=== PATIENT | female | born 1945 | race African-American/Black ===

== ENCOUNTER 2018-05-29 11:27 | Inpatient (IN) | payer MEDICARE ==
[~2018-05-29] VITALS: Ht 172.7 cm; Wt 104.1 kg
--- NOTE | ~2018-05-29 | MORECARE ---
CASE MANAGEMENT DISCHARGE SUMMARY PATIENT: IMELDA VELASQUEZ UNIT: [id number] ADM DATE: 05/29/18 AGE: 72 : 45 SEX: F ROOM/BED: D.2130 AUTHOR: JOSE CARNES PHYSICIAN: REFERRING PHYSICIAN: JOHN WARNER MD DATE OF SERVICE: 06/08/18 Discharge Plan Patient Name: IMELDA VELASQUEZ Facility: [facility]:[place] : 1945 Planned Disposition: Home Anticipated Discharge Date: 06/07/18 Discharge Date: 06/07/2018 Expected LOS: 9 Initial Reviewer: [id number] Initial Review Date: 05/31/2018 Generated: 06/08/18 9:44 am Comments DCP- Discharge Planning Updated by [email or web address]: Hugo Dietrich on 06/05/18 3:[address] Patient Name: IMELDA VELASQUEZ Encounter No: [id number] : 1945 Primary Insurance: MEDICARE A & B Anticipated DC Date: 06-06-2018 Planned Disposition: Home DCP follow-up note: CM REVIEWED PT'S CHART INDICATING PT IS WALKING 6 FEET, 35% ASSISTANCE WITH THERAPY. CM DISCUSSED DISCHARGE PLANNING AND NEEDS WELL AVAILABILITY OF REHAB SERVICES THROUGH INPATIENT, SNF, HOME HEALTH AND OUTPATIENT SERVICES. PT REFUSES THERAPY SERVICES, REPORTS HAVING WALKER AND FAMILY AT HOME THAT WILL ASSIST WITH ANY THERAPY NEEDS. PT PLAS SHE IS GOING HOME AT DISCHARGE AND NEEDS NOTHING. IMPORTANT MESSAGE FROM MEDICARE PROVIDED AND EXPLAINED. PT CONTINUES TO PLAN TO DISCHARGE HOME WITH FAMILY, DENIES NEED OF ANY THERAPY OR HOME SERVICES. CM TO CONTINUE TO FOLLOW AND ASSIST. DALILA Alegre DCP- Discharge Planning Updated by [id number]: Demetria Porter on 05/31/18 8:[address] Patient Name: IMELDA VELASQUEZ Admission Status: ER Accout number: [id number] Admission Date: 05-29-2018 : 1945 Admission Diagnosis: Attending: JOHN WARNER Current LOS: 2 Anticipated DC Date: 06-02-2018 Planned Disposition: Home Primary Insurance: MEDICARE A & B Discharge Planning Comments: CM MET WITH PATIENT REGARDING D/C NEEDS AND PLANS. MAGED STATED SHE LIVES WITH HER SPOUSE (DESIRAE) AND HE WILL DRIVE HER HOME AT DISCHARGE. PATIENT STATED SHE HAS 2 STEPS TO ENTER HOME AND NO STAIRS INSIDE. PATIENT IS INDEPENDENT WITH HER CARE AND HAS A WALKER, AND CANE AT HOME. PATIENT DOES NOT HAVE A PCP AND USES [facility] [address]. PATIENT REFUSED HOME HEALTH AT THIS TIME. PATIENT STATED HER DAUGHTER HELPS HER IF NEEDED. CM WILL CONTINUE TO FOLLOW PATIENT WITH D/C NEEDS AND PLANS. PCP NONE [facility] [address] DESIRAE (SPOUSE) [phone] Wood Boring Machine Operator: Demetria Porter DCPIA - Discharge Planning Initial Assessment Updated by [id number]: Demetria Porter on 05/31/18 8:57 am * Is the patient Alert and Oriented? Yes * How many steps to enter\exit or inside your home? * PCP NONE * Pharmacy [facility] [address] * Preadmission Environment Home with Family * ADLs Independent * Equipment Cane Walker * List name and contact numbers for known caregivers / representatives who currently or will assist patient after discharge: DESIRAE (SPOUSE) [phone] * Verbal permission to speak to the caregivers and representatives has been obtained from the patient. Yes * Community resources currently utilized None * Additional services required to return to the preadmission environment? Yes * Can the patient safely return to the preadmission environment? Yes * Has this patient been hospitalized within the prior 30 days at any hospital? No Coverage Notice Reviewer: [id number] - Hugo Dietrich Notice Issued Date-Time: 06/05/2018 12:10 Notice Type: IM Discharge Notice Notice Delivered To: Patient Relationship to Patient: Head Porter Name: Delivery Method: HAND - Hand Delivered Radha Days: Prior Verbal Notification: Recipient Understood Notice: Yes Recipient Signature: Yes Med Rec Note Co-signed by Attending: Coverage Notice Comment: Last DP export: 06/05/18 3:47 Patient Name: IMELDA VELASQUEZ Page [phone] at 0844 All edits/amendments must be made on the electronic document DICTATION DATE: 06/08/18843 PONY WORKER: LYUBOV 06/08/18843 RPT#: [id number] DC DATE:06/07/18 STATUS: DIS IN [id number] [place] [address] END OF REPORT
--- NOTE | ~2018-05-29 | MORECARE ---
CASE MANAGEMENT DISCHARGE SUMMARY PATIENT: IMELDA VELASQUEZ UNIT: [id number] ADM DATE: 05/29/18 AGE: 72 : 45 SEX: F ROOM/BED: D.2130 AUTHOR: DEYVIDOC PHYSICIAN: REFERRING PHYSICIAN: JOHN WARNER MD DATE OF SERVICE: 05/31/18 Discharge Plan Patient Name: IMELDA VELASQUEZ Facility: [facility]:[place] : 1945 Planned Disposition: Home Anticipated Discharge Date: 06/02/18 Discharge Date: Expected LOS: 4 Initial Reviewer: [email or web address] Initial Review Date: 05/31/2018 Generated: 05/31/18 10:06 am Comments DCP- Discharge Planning Updated by [email or web address]: Demetria Porter on 05/31/18 8:[address] Patient Name: IMELDA VELASQUEZ Admission Status: ER Accout number: [id number] Admission Date: 05-29-2018 : 1945 Admission Diagnosis: Attending: JOHN WARNER Current LOS: 2 Anticipated DC Date: 06-02-2018 Planned Disposition: Home Primary Insurance: MEDICARE A & B Discharge Planning Comments: CM MET WITH PATIENT REGARDING D/C NEEDS AND PLANS. MAGED STATED SHE LIVES WITH HER SPOUSE (DESIRAE) AND HE WILL DRIVE HER HOME AT DISCHARGE. PATIENT STATED SHE HAS 2 STEPS TO ENTER HOME AND NO STAIRS INSIDE. PATIENT IS INDEPENDENT WITH HER CARE AND HAS A WALKER, AND CANE AT HOME. PATIENT DOES NOT HAVE A PCP AND USES [facility] [address]. PATIENT REFUSED HOME HEALTH AT THIS TIME. PATIENT STATED HER DAUGHTER HELPS HER IF NEEDED. CM WILL CONTINUE TO FOLLOW PATIENT WITH D/C NEEDS AND PLANS. PCP NONE [facility] [address] DESIRAE (SPOUSE) [phone] Licensed Insurance Sales Agent: Demetria Porter DCPIA - Discharge Planning Initial Assessment Updated by [email or web address]: Demetria Porter on 05/31/18 8:57 am * Is the patient Alert and Oriented? Yes * How many steps to enter\exit or inside your home? * PCP NONE * Pharmacy [facility] [address] * Preadmission Environment Home with Family * ADLs Independent * Equipment Cane Walker * List name and contact numbers for known caregivers / representatives who currently or will assist patient after discharge: DESIRAE (SPOUSE) [phone] * Verbal permission to speak to the caregivers and representatives has been obtained from the patient. Yes * Community resources currently utilized None * Additional services required to return to the preadmission environment? Yes * Can the patient safely return to the preadmission environment? Yes * Has this patient been hospitalized within the prior 30 days at any hospital? No Last DP export: 05/31/18 7:59 a Patient Name: IMELDA VELASQUEZ Page [phone] at 0906 All edits/amendments must be made on the electronic document DICTATION DATE: 05/31/18905 DISASTER RECOVERY ANALYST: LYUBOV 05/31/18905 RPT#: [id number] DC DATE: STATUS: ADM IN [facility] [address] [place] [address] END OF REPORT
--- NOTE | ~2018-05-29 | MORECARE ---
CASE MANAGEMENT DISCHARGE SUMMARY PATIENT: IMELDA VELASQUEZ UNIT: [id number] ADM DATE: 05/29/18 AGE: 72 : 45 SEX: F ROOM/BED: D.2130 AUTHOR: JOSE CARNES PHYSICIAN: REFERRING PHYSICIAN: JOHN WARNER MD DATE OF SERVICE: 05/31/18 Discharge Plan Patient Name: IMELDA VELASQUEZ [facility] [facility] 1945 Planned Disposition: Home Anticipated Discharge Date: 06/02/18 Discharge Date: Expected LOS: 4 Initial Reviewer: [email or web address] Initial Review Date: 05/31/2018 Generated: 05/31/18 9:59 am DCPIA - Discharge Planning Initial Assessment Updated by [email or web address]: Demetria Porter on 05/31/18 8:57 am * Is the patient Alert and Oriented? Yes * How many steps to enter\exit or inside your home? * PCP NONE * Pharmacy [facility] [address] * Preadmission Environment Home with Family * ADLs Independent * Equipment Cane Walker * List name and contact numbers for known caregivers / representatives who currently or will assist patient after discharge: DESIRAE (SPOUSE) [phone] * Verbal permission to speak to the caregivers and representatives has been obtained from the patient. Yes * Community resources currently utilized None * Additional services required to return to the preadmission environment? Yes * Can the patient safely return to the preadmission environment? Yes * Has this patient been hospitalized within the prior 30 days at any hospital? No Patient Name: IMELDA VELASQUEZ Page 32770 at 0859 All edits/amendments must be made on the electronic document DICTATION DATE: 05/31/18857 PULLER THROUGH: LYUBOV 05/31/18857 RPT#: [id number] DC DATE: STATUS: ADM IN [facility] [address] [place] [address] END OF REPORT
--- NOTE | ~2018-05-29 | MORECARE ---
CASE MANAGEMENT DISCHARGE SUMMARY PATIENT: IMELDA VELASQUEZ UNIT: [id number] ADM DATE: 05/29/18 AGE: 72 : 45 SEX: F ROOM/BED: D.2130 AUTHOR: DEYVIDOC PHYSICIAN: REFERRING PHYSICIAN: JOHN WARNER MD DATE OF SERVICE: 06/05/18 Discharge Plan Patient Name: IMELDA VELASQUEZ Facility: [facility]:[place] : 1945 Planned Disposition: Home Anticipated Discharge Date: 06/06/18 Discharge Date: Expected LOS: 8 Initial Reviewer: [id number] Initial Review Date: 05/31/2018 Generated: 06/05/18 5:39 pm Comments DCP- Discharge Planning Updated by [email or web address]: Demetria Porter on 05/31/18 8:[address] Patient Name: IMELDA VELASQUEZ Admission Status: ER Accout number: [id number] Admission Date: 05-29-2018 : 1945 Admission Diagnosis: Attending: JOHN WARNER Current LOS: 2 Anticipated DC Date: 06-02-2018 Planned Disposition: Home Primary Insurance: MEDICARE A & B Discharge Planning Comments: CM MET WITH PATIENT REGARDING D/C NEEDS AND PLANS. MAGED STATED SHE LIVES WITH HER SPOUSE (DESIRAE) AND HE WILL DRIVE HER HOME AT DISCHARGE. PATIENT STATED SHE HAS 2 STEPS TO ENTER HOME AND NO STAIRS INSIDE. PATIENT IS INDEPENDENT WITH HER CARE AND HAS A WALKER, AND CANE AT HOME. PATIENT DOES NOT HAVE A PCP AND USES [facility] [address]. PATIENT REFUSED HOME HEALTH AT THIS TIME. PATIENT STATED HER DAUGHTER HELPS HER IF NEEDED. CM WILL CONTINUE TO FOLLOW PATIENT WITH D/C NEEDS AND PLANS. PCP NONE [facility] [address] DESIRAE (SPOUSE) [phone] Still Operator Brandy: Demetria Porter DCPIA - Discharge Planning Initial Assessment Updated by [id number]: Demetria Porter on 05/31/18 8:57 am * Is the patient Alert and Oriented? Yes * How many steps to enter\exit or inside your home? * PCP NONE * Pharmacy [facility] [address] * Preadmission Environment Home with Family * ADLs Independent * Equipment Cane Walker * List name and contact numbers for known caregivers / representatives who currently or will assist patient after discharge: DESIRAE (SPOUSE) [phone] * Verbal permission to speak to the caregivers and representatives has been obtained from the patient. Yes * Community resources currently utilized None * Additional services required to return to the preadmission environment? Yes * Can the patient safely return to the preadmission environment? Yes * Has this patient been hospitalized within the prior 30 days at any hospital? No Coverage Notice Reviewer: [email or web address] Eva Dietrich Notice Issued Date-Time: 06/05/2018 12:10 Notice Type: IM Discharge Notice Notice Delivered To: Patient Relationship to Patient: Child Nutrition Manager Name: Delivery Method: HAND - Hand Delivered Radha Days: Prior Verbal Notification: Recipient Understood Notice: Yes Recipient Signature: Yes Med Rec Note Co-signed by Attending: Coverage Notice Comment: Last DP export: 05/31/18 8:06 a Patient Name: IMELDA VELASQUEZ Page 44080 at 1639 All edits/amendments must be made on the electronic document DICTATION DATE: 06/05/18 1639 EDGE SETTER: LYUBOV 06/05/18 1639 RPT#: [id number] DC DATE: STATUS: ADM IN [facility] [address] [place] [address] END OF REPORT
--- NOTE | ~2018-05-29 | MORECARE ---
CASE MANAGEMENT DISCHARGE SUMMARY PATIENT: IMELDA VELASQUEZ UNIT: [id number] ADM DATE: 05/29/18 AGE: 72 : 45 SEX: F ROOM/BED: D.2130 AUTHOR: JOSE CARNES PHYSICIAN: REFERRING PHYSICIAN: JOHN WARNER MD DATE OF SERVICE: 06/05/18 Discharge Plan Patient Name: IMELDA VELASQUEZ Facility: [facility]:[place] : 1945 Planned Disposition: Home Anticipated Discharge Date: 06/06/18 Discharge Date: Expected LOS: 8 Initial Reviewer: [id number] Initial Review Date: 05/31/2018 Generated: 06/05/18 5:47 pm Comments DCP- Discharge Planning Updated by [email or web address]: Hugo Dietrich on 06/05/18 3:[address] Patient Name: IMELDA VELASQUEZ Encounter No: [id number] : 1945 Primary Insurance: MEDICARE A & B Anticipated DC Date: 06-06-2018 Planned Disposition: Home DCP follow-up note: CM REVIEWED PT'S CHART INDICATING PT IS WALKING 6 FEET, 35% ASSISTANCE WITH THERAPY. CM DISCUSSED DISCHARGE PLANNING AND NEEDS WELL AVAILABILITY OF REHAB SERVICES THROUGH INPATIENT, J[facility], HOME HEALTH AND OUTPATIENT SERVICES. PT REFUSES THERAPY SERVICES, REPORTS HAVING WALKER AND FAMILY AT HOME THAT WILL ASSIST WITH ANY THERAPY NEEDS. PT PLAS SHE IS GOING HOME AT DISCHARGE AND NEEDS NOTHING. IMPORTANT MESSAGE FROM MEDICARE PROVIDED AND EXPLAINED. PT CONTINUES TO PLAN TO DISCHARGE HOME WITH FAMILY, DENIES NEED OF ANY THERAPY OR HOME SERVICES. CM TO CONTINUE TO FOLLOW AND ASSIST. DALILA Alegre DCP- Discharge Planning Updated by [id number]: Demetria Porter on 05/31/18 8:[address] Patient Name: IMELDA VELASQUEZ Admission Status: ER Accout number: [id number] Admission Date: 05-29-2018 : 1945 Admission Diagnosis: Attending: JOHN WARNER Current LOS: 2 Anticipated DC Date: 06-02-2018 Planned Disposition: Home Primary Insurance: MEDICARE A & B Discharge Planning Comments: CM MET WITH PATIENT REGARDING D/C NEEDS AND PLANS. MAGED STATED SHE LIVES WITH HER SPOUSE (DESIRAE) AND HE WILL DRIVE HER HOME AT DISCHARGE. PATIENT STATED SHE HAS 2 STEPS TO ENTER HOME AND NO STAIRS INSIDE. PATIENT IS INDEPENDENT WITH HER CARE AND HAS A WALKER, AND CANE AT HOME. PATIENT DOES NOT HAVE A PCP AND USES [facility] [address]. PATIENT REFUSED HOME HEALTH AT THIS TIME. PATIENT STATED HER DAUGHTER HELPS HER IF NEEDED. CM WILL CONTINUE TO FOLLOW PATIENT WITH D/C NEEDS AND PLANS. PCP NONE [facility] [address] DESIRAE (SPOUSE) [phone] Crayon Sawyer: Demetria Porter DCPIA - Discharge Planning Initial Assessment Updated by [email or web address]: Demetria Porter on 05/31/18 8:57 am * Is the patient Alert and Oriented? Yes * How many steps to enter\exit or inside your home? * PCP NONE * Pharmacy [facility] [address] * Preadmission Environment Home with Family * ADLs Independent * Equipment Cane Walker * List name and contact numbers for known caregivers / representatives who currently or will assist patient after discharge: DESIRAE (SPOUSE) [phone] * Verbal permission to speak to the caregivers and representatives has been obtained from the patient. Yes * Community resources currently utilized None * Additional services required to return to the preadmission environment? Yes * Can the patient safely return to the preadmission environment? Yes * Has this patient been hospitalized within the prior 30 days at any hospital? No Coverage Notice Reviewer: [id number] - Hugo Dietrich Notice Issued Date-Time: 06/05/2018 12:10 Notice Type: IM Discharge Notice Notice Delivered To: Patient Relationship to Patient: Chin Strap Sewer Name: Delivery Method: HAND - Hand Delivered Radha Days: Prior Verbal Notification: Recipient Understood Notice: Yes Recipient Signature: Yes Med Rec Note Co-signed by Attending: Coverage Notice Comment: Last DP export: 06/05/18 3:39 Patient Name: IMELDA VELASQUEZ Page 30105 at 1647 All edits/amendments must be made on the electronic document DICTATION DATE: 06/05/181646 YOGHURT MAKER: LYUBOV 06/05/181646 RPT#: [id number] DC DATE: STATUS: ADM IN [facility] [address] [place] [address] END OF REPORT
[2018-05-29 11:57] LABS: BASOPHILS 0.1 % (0-2); EOSINOPHILS 1.8 % (0-7); IMMATURE GRANULOCYTES 0.4 % (0-5); LYMPHOCYTES 24.2 % (15-50); MCH 31.4 pg (26.0-34.0); MCHC 32.2 g/dL (31.0-37.0); MCV 97.5 fL (80.0-100.0); MEAN PLATELET VOLUME 8.7 fL (7.4-10.4); MONOCYTES 8.7 % (2-11); NEUTROPHILS 64.8 % (40-80); PLATELET COUNT 230 10x3/uL (130-400); RBC 2.04 10x6/uL (4.00-5.40); RDW 14.5 % (11.5-14.5); WBC 10.4 10x3/uL (4.8-10.8)
[2018-05-29 12:03] LABS: HEMATOCRIT 19.9 % (36.0-48.0); HEMOGLOBIN 6.4 g/dL (12-16)
[2018-05-29 12:07] LABS: APTT 28.8 SECONDS (22.8-39.4); INR 1.15 (0.85-1.17); PROTIME 14.3 SECONDS (11.6-15.0)
[2018-05-29 12:26] LABS: CKMB 9.1 U/L (0.0-3.6); CREATINE KINASE 1725 UL (21-215); THYROID STIMULATING HORMONE 100.12 uIU/mL (0.36-3.74); TROPONIN-I < 0.017 ng/mL (0.000-0.060)
[2018-05-29 12:45] LABS: ALBUMIN 3.1 g/dL (3.4-5.0); ANION GAP 21.7 mmol/L (8-16); BILIRUBIN - TOTAL 0.24 mg/dL (0.2-1.3); CARBON DIOXIDE 12.5 mmol/L (21.0-32.0); CREATININE - SERUM 5.4 mg/dL (0.6-1.3); POTASSIUM - SERUM 4.2 mmol/L (3.5-5.1); PROTEIN - SERUM 7.1 g/dL (6.4-8.2)
[2018-05-29 12:48] LABS: CALCIUM 6.4 mg/dL (8.5-10.1)
[2018-05-29 16:55] VITALS: BP 130/62; BMI 35.0
[2018-05-29 17:13] LABS: % SATURATION 34 % (15-55); IRON 70 ug/dl (35-150); TOTAL IRON BIND CAPACITY 201 ug/dl (260-445); UNSAT IRON BIND CAPACITY 131 ug/dl (150-375)
[2018-05-29 22:03] VITALS: BP 139/71
[2018-05-30 01:13] VITALS: BP 123/73
[2018-05-30 02:22] LABS: APPEARANCE CLOUDY (CLEAR); BILIRUBIN NEGATIVE (NEGATIVE); COLOR YELLOW (YELLOW); GLUCOSE NEGATIVE (NEGATIVE); KETONE NEGATIVE (NEGATIVE); NITRITE NEGATIVE (NEGATIVE); PROTEIN TRACE mg/dL (NEGATIVE); UROBILINOGEN NORMAL (NORMAL)
[2018-05-30 02:23] LABS: RED CELLS - URINE 0-5 /hpf (0-5)
[2018-05-30 02:24] LABS: BACTERIA MANY /hpf (NONE SEEN); EPITHELIAL CELLS 0-5 /hpf (0-5)
[2018-05-30 05:01] VITALS: BP 116/88
[2018-05-30 06:52] LABS: BASOPHILS 0.2 % (0-2); IMMATURE GRANULOCYTES 0.5 % (0-5); LYMPHOCYTES 26.6 % (15-50); MCH 30.9 pg (26.0-34.0); MCHC 33.5 g/dL (31.0-37.0); MEAN PLATELET VOLUME 9.1 fL (7.4-10.4); MONOCYTES 8.5 % (2-11); NEUTROPHILS 62.2 % (40-80); PLATELET COUNT 205 10x3/uL (130-400); RDW 16.3 % (11.5-14.5); WBC 8.8 10x3/uL (4.8-10.8)
[2018-05-30 06:59] LABS: HEMATOCRIT 24.2 % (36.0-48.0); HEMOGLOBIN 8.1 g/dL (12-16); MCV 92.4 fL (80.0-100.0); RBC 2.62 10x6/uL (4.00-5.40)
[2018-05-30 07:31] LABS: ALBUMIN 2.7 g/dL (3.4-5.0); ALKALINE PHOSPHATASE 55 U/L (46-116); ALT (SGPT) 26 U/L (10-68); BILIRUBIN - TOTAL 0.29 mg/dL (0.2-1.3); CALC OSMOLALITY 303 mosm/kg (275-300); CARBON DIOXIDE 10.6 mmol/L (21.0-32.0); CHLORIDE - SERUM 114 mmol/L (98-107); CREATININE - SERUM 5.1 mg/dL (0.6-1.3); GLUCOSE 76 mg/dL (74-106); POTASSIUM - SERUM 3.8 mmol/L (3.5-5.1); PROTEIN - SERUM 6.9 g/dL (6.4-8.2); SODIUM 144 mmol/L (136-145); UREA NITROGEN 63 mg/dL (7-18); eGFR NON AFRICAN AMERICAN 9 mL/min (90-120)
[2018-05-30 07:59] LABS: CREATINE KINASE 1586 UL (21-215)
[2018-05-30 08:01] LABS: CALCIUM 6.1 mg/dL (8.5-10.1); CKMB 8.9 U/L (0.0-3.6)
[2018-05-30 08:33] VITALS: BP 128/61
[2018-05-30 11:45] VITALS: BP 127/64
[2018-05-30 13:36] VITALS: Ht 172.7 cm; Wt 104.1 kg
[2018-05-30 16:26] VITALS: BP 148/73
[2018-05-30 21:31] VITALS: BP 138/72
[2018-05-31 00:30] VITALS: BP 139/68
[2018-05-31 05:27] LABS: BASOPHILS 0.1 % (0-2); HEMATOCRIT 25.1 % (36.0-48.0); HEMOGLOBIN 8.2 g/dL (12-16); IMMATURE GRANULOCYTES 0.7 % (0-5); LYMPHOCYTES 21.9 % (15-50); MCH 30.1 pg (26.0-34.0); MCHC 32.7 g/dL (31.0-37.0); MCV 92.3 fL (80.0-100.0); MEAN PLATELET VOLUME 9.4 fL (7.4-10.4); MONOCYTES 11.5 % (2-11); NEUTROPHILS 64.8 % (40-80); PLATELET COUNT 217 10x3/uL (130-400); RBC 2.72 10x6/uL (4.00-5.40); RDW 16.2 % (11.5-14.5); WBC 10.8 10x3/uL (4.8-10.8)
[2018-05-31 05:33] VITALS: BP 131/69
[2018-05-31 06:19] LABS: CALC OSMOLALITY 299 mosm/kg (275-300); CARBON DIOXIDE 12.1 mmol/L (21.0-32.0); CHLORIDE - SERUM 109 mmol/L (98-107); CREATININE - SERUM 4.7 mg/dL (0.6-1.3); GLUCOSE 104 mg/dL (74-106); PHOSPHOROUS 4.4 mg/dL (2.5-4.9); POTASSIUM - SERUM 3.6 mmol/L (3.5-5.1); SODIUM 141 mmol/L (136-145); UREA NITROGEN 65 mg/dL (7-18); eGFR NON AFRICAN AMERICAN 10 mL/min (90-120)
[2018-05-31 06:21] LABS: CREATINE KINASE 1515 UL (21-215)
[2018-05-31 06:22] LABS: CALCIUM 6.9 mg/dL (8.5-10.1)
[2018-05-31 06:23] LABS: CKMB 7.8 U/L (0.0-3.6)
[2018-05-31 08:12] VITALS: BP 124/66
[2018-05-31 11:22] VITALS: BP 115/66
[2018-05-31 15:41] VITALS: BP 130/84
[2018-05-31 21:31] VITALS: BP 121/74
[2018-06-01 00:49] VITALS: BP 122/78
[2018-06-01 05:44] LABS: BASOPHILS 0.1 % (0-2); EOSINOPHILS 1.3 % (0-7); IMMATURE GRANULOCYTES 1.4 % (0-5); LYMPHOCYTES 21.5 % (15-50); MCH 30.4 pg (26.0-34.0); MCHC 33.3 g/dL (31.0-37.0); MCV 91.3 fL (80.0-100.0); MEAN PLATELET VOLUME 9.3 fL (7.4-10.4); MONOCYTES 12.5 % (2-11); NEUTROPHILS 63.2 % (40-80); PLATELET COUNT 218 10x3/uL (130-400); RBC 2.63 10x6/uL (4.00-5.40); RDW 15.8 % (11.5-14.5); WBC 9.1 10x3/uL (4.8-10.8)
[2018-06-01 05:58] VITALS: BP 108/63
[2018-06-01 06:24] LABS: CALC OSMOLALITY 297 mosm/kg (275-300); CHLORIDE - SERUM 105 mmol/L (98-107); CREATININE - SERUM 4.4 mg/dL (0.6-1.3); GLUCOSE 107 mg/dL (74-106); PHOSPHOROUS 3.9 mg/dL (2.5-4.9); SODIUM 141 mmol/L (136-145); UREA NITROGEN 60 mg/dL (7-18); eGFR NON AFRICAN AMERICAN 10 mL/min (90-120)
[2018-06-01 06:53] LABS: CALCIUM 6.5 mg/dL (8.5-10.1); CARBON DIOXIDE 21.3 mmol/L (21.0-32.0); CKMB 3.8 U/L (0.0-3.6); CREATINE KINASE 1157 UL (21-215); POTASSIUM - SERUM 2.8 mmol/L (3.5-5.1)
[2018-06-01 08:54] VITALS: BP 149/59
[2018-06-01 10:50] VITALS: BP 101/64
[2018-06-01 11:35] LABS: ERYTHROCYTE SEDIMENTATION RATE 45 mm/hr (0-30)
[2018-06-01 14:14] VITALS: BP 142/58
[2018-06-01 19:00] VITALS: BP 140/86
[2018-06-02 02:11] VITALS: BP 127/73
[2018-06-02 04:00] VITALS: BP 133/70
[2018-06-02 07:33] VITALS: BP 133/70
[2018-06-02 09:04] LABS: BASOPHILS 0.2 % (0-2); EOSINOPHILS 1.1 % (0-7); HEMATOCRIT 26.4 % (36.0-48.0); HEMOGLOBIN 8.8 g/dL (12-16); IMMATURE GRANULOCYTES 1.4 % (0-5); LYMPHOCYTES 15.4 % (15-50); MCH 30.8 pg (26.0-34.0); MCHC 33.3 g/dL (31.0-37.0); MCV 92.3 fL (80.0-100.0); MEAN PLATELET VOLUME 9.7 fL (7.4-10.4); MONOCYTES 12.6 % (2-11); NEUTROPHILS 69.3 % (40-80); PLATELET COUNT 258 10x3/uL (130-400); RBC 2.86 10x6/uL (4.00-5.40); RDW 15.7 % (11.5-14.5)
[2018-06-02 09:07] LABS: WBC 11.8 10x3/uL (4.8-10.8)
[2018-06-02 09:22] LABS: CARBON DIOXIDE 18.6 mmol/L (21.0-32.0); CREATININE - SERUM 4.4 mg/dL (0.6-1.3); PHOSPHOROUS 4.4 mg/dL (2.5-4.9)
[2018-06-02 09:23] LABS: ANION GAP 21.1 mmol/L (8-16); POTASSIUM - SERUM 3.7 mmol/L (3.5-5.1)
[2018-06-02 09:24] LABS: CALCIUM 6.5 mg/dL (8.5-10.1)
[2018-06-02 11:43] VITALS: BP 133/78
[2018-06-02 15:54] VITALS: BP 133/80
[2018-06-02 20:00] VITALS: BP 143/85
[2018-06-03 00:10] VITALS: BP 153/82
[2018-06-03 04:00] VITALS: BP 144/91
[2018-06-03 08:35] VITALS: BP 118/72
[2018-06-03 10:57] LABS: BASOPHILS 0.2 % (0-2); EOSINOPHILS 0.4 % (0-7); HEMATOCRIT 25.9 % (36.0-48.0); HEMOGLOBIN 8.5 g/dL (12-16); IMMATURE GRANULOCYTES 1.8 % (0-5); LYMPHOCYTES 14.5 % (15-50); MCH 30.7 pg (26.0-34.0); MCHC 32.8 g/dL (31.0-37.0); MCV 93.5 fL (80.0-100.0); MEAN PLATELET VOLUME 9.3 fL (7.4-10.4); MONOCYTES 9.4 % (2-11); NEUTROPHILS 73.7 % (40-80); PLATELET COUNT 263 10x3/uL (130-400); RBC 2.77 10x6/uL (4.00-5.40); RDW 15.4 % (11.5-14.5); WBC 12.8 10x3/uL (4.8-10.8)
[2018-06-03 11:13] LABS: ANION GAP 17.6 mmol/L (8-16); CARBON DIOXIDE 19.9 mmol/L (21.0-32.0); CREATININE - SERUM 4.2 mg/dL (0.6-1.3); PHOSPHOROUS 4.6 mg/dL (2.5-4.9); POTASSIUM - SERUM 3.5 mmol/L (3.5-5.1)
[2018-06-03 11:16] LABS: CALCIUM 6.9 mg/dL (8.5-10.1)
[2018-06-03 11:49] LABS: APPEARANCE CLOUDY (CLEAR); BILIRUBIN NEGATIVE (NEGATIVE); COLOR YELLOW (YELLOW); GLUCOSE NEGATIVE (NEGATIVE); KETONE NEGATIVE (NEGATIVE); NITRITE NEGATIVE (NEGATIVE); PROTEIN 1+ mg/dL (NEGATIVE); SPECIFIC GRAVITY 1.015 (1.005-1.020); UROBILINOGEN NORMAL (NORMAL)
[2018-06-03 11:52] LABS: BACTERIA MODERATE /hpf (NONE SEEN); EPITHELIAL CELLS 0-5 /hpf (0-5); RED CELLS - URINE 0-5 /hpf (0-5)
[2018-06-03 11:55] VITALS: BP 128/77
[2018-06-03 17:19] VITALS: BP 138/79
[2018-06-03 20:00] VITALS: BP 137/78
[2018-06-04 00:06] VITALS: BP 146/76
[2018-06-04 04:00] VITALS: BP 150/90
[2018-06-04 06:52] LABS: BASOPHILS 0.1 % (0-2); EOSINOPHILS 1.3 % (0-7); HEMATOCRIT 24.6 % (36.0-48.0); HEMOGLOBIN 8.1 g/dL (12-16); IMMATURE GRANULOCYTES 1.4 % (0-5); LYMPHOCYTES 18.9 % (15-50); MCH 30.2 pg (26.0-34.0); MCHC 32.9 g/dL (31.0-37.0); MCV 91.8 fL (80.0-100.0); MONOCYTES 8.5 % (2-11); NEUTROPHILS 69.8 % (40-80); PLATELET COUNT 280 10x3/uL (130-400); RBC 2.68 10x6/uL (4.00-5.40); RDW 15.3 % (11.5-14.5)
[2018-06-04 07:06] LABS: ANION GAP 17.9 mmol/L (8-16); CARBON DIOXIDE 22.4 mmol/L (21.0-32.0); CREATININE - SERUM 4.1 mg/dL (0.6-1.3); PHOSPHOROUS 3.8 mg/dL (2.5-4.9); POTASSIUM - SERUM 3.3 mmol/L (3.5-5.1)
[2018-06-04 08:44] VITALS: BP 136/64
[2018-06-04 12:09] VITALS: BP 130/72
[2018-06-04 20:30] VITALS: BP 113/72
[2018-06-05 00:30] VITALS: BP 160/95
[2018-06-05 04:30] VITALS: BP 139/68
[2018-06-05 06:48] LABS: BASOPHILS 0.2 % (0-2); EOSINOPHILS 0.7 % (0-7); HEMATOCRIT 24.6 % (36.0-48.0); HEMOGLOBIN 8.1 g/dL (12-16); IMMATURE GRANULOCYTES 1.4 % (0-5); LYMPHOCYTES 20.2 % (15-50); MCH 30.6 pg (26.0-34.0); MCHC 32.9 g/dL (31.0-37.0); MCV 92.8 fL (80.0-100.0); MONOCYTES 8.9 % (2-11); NEUTROPHILS 68.6 % (40-80); PLATELET COUNT 278 10x3/uL (130-400); RBC 2.65 10x6/uL (4.00-5.40); RDW 15.1 % (11.5-14.5); WBC 9.8 10x3/uL (4.8-10.8)
[2018-06-05 07:06] LABS: ANION GAP 16.9 mmol/L (8-16); CALCIUM 7.5 mg/dL (8.5-10.1); CARBON DIOXIDE 21.5 mmol/L (21.0-32.0); PHOSPHOROUS 3.5 mg/dL (2.5-4.9); POTASSIUM - SERUM 3.4 mmol/L (3.5-5.1)
[2018-06-05 10:12] VITALS: BP 143/71
[2018-06-05 11:00] VITALS: BP 132/77
[2018-06-05 15:00] VITALS: BP 138/75
[2018-06-05 20:00] VITALS: BP 140/73
[2018-06-06] MEDS ORDERED: SYNTHROID125 MCG PO (01:02)
[2018-06-06 05:50] LABS: BASOPHILS 0.1 % (0-2); EOSINOPHILS 0.6 % (0-7); HEMATOCRIT 28.2 % (36.0-48.0); HEMOGLOBIN 9.1 g/dL (12-16); IMMATURE GRANULOCYTES 1.6 % (0-5); LYMPHOCYTES 20.3 % (15-50); MCH 30.6 pg (26.0-34.0); MCHC 32.3 g/dL (31.0-37.0); MEAN PLATELET VOLUME 9.1 fL (7.4-10.4); MONOCYTES 9.1 % (2-11); NEUTROPHILS 68.3 % (40-80); PLATELET COUNT 276 10x3/uL (130-400); RBC 2.97 10x6/uL (4.00-5.40); RDW 15.5 % (11.5-14.5); WBC 8.6 10x3/uL (4.8-10.8)
[2018-06-06 06:01] LABS: MCV 94.9 fL (80.0-100.0)
[2018-06-06 06:45] LABS: ANION GAP 19.8 mmol/L (8-16); CALCIUM 7.7 mg/dL (8.5-10.1); CARBON DIOXIDE 20.1 mmol/L (21.0-32.0); PHOSPHOROUS 3.3 mg/dL (2.5-4.9)
[2018-06-06 06:48] LABS: POTASSIUM - SERUM 3.9 mmol/L (3.5-5.1)
[2018-06-06 06:59] VITALS: BP 138/70
[2018-06-06 08:36] VITALS: BP 132/84
[2018-06-06 12:16] VITALS: BP 125/68
[2018-06-06 21:09] VITALS: BP 146/81
[2018-06-07 01:23] VITALS: BP 145/83
[2018-06-07 06:15] VITALS: BP 137/72
[2018-06-07 06:49] LABS: BASOPHILS 0.3 % (0-2); EOSINOPHILS 0.9 % (0-7); HEMATOCRIT 24.4 % (36.0-48.0); IMMATURE GRANULOCYTES 2.7 % (0-5); LYMPHOCYTES 23.5 % (15-50); MCH 31.3 pg (26.0-34.0); MCHC 32.8 g/dL (31.0-37.0); MCV 95.3 fL (80.0-100.0); MEAN PLATELET VOLUME 8.8 fL (7.4-10.4); MONOCYTES 9.1 % (2-11); NEUTROPHILS 63.5 % (40-80); PLATELET COUNT 265 10x3/uL (130-400); RBC 2.56 10x6/uL (4.00-5.40); RDW 15.5 % (11.5-14.5); WBC 7.9 10x3/uL (4.8-10.8)
[2018-06-07 07:02] LABS: ANION GAP 14.1 mmol/L (8-16); CARBON DIOXIDE 24.6 mmol/L (21.0-32.0); CREATININE - SERUM 3.6 mg/dL (0.6-1.3); PHOSPHOROUS 2.5 mg/dL (2.5-4.9)
[2018-06-07 07:24] LABS: POTASSIUM - SERUM 2.7 mmol/L (3.5-5.1)
[2018-06-07 08:17] VITALS: BP 142/61
[2018-06-07] MEDS ORDERED: OS-CAL500 MG PO (12:27)
[2018-06-07] MEDS ORDERED: ROCALTROL0.25 MCG PO (12:27)
[2018-06-07] MEDS ORDERED: SYNTHROID125 MCG PO (12:46)
[2018-06-07] MEDS ORDERED: SODIUM BICARBO650 MG PO (12:46)
[2018-06-07 13:00] VITALS: BP 138/64
[2018-06-27] MEDS ORDERED: QUESTRAN PACKET PO (09:05)
[2018-06-27] MEDS ORDERED: FLAGYL 500500 MG/100 PO (09:05)
[2018-06-27] MEDS ORDERED: OS-CAL500 MG PO (09:05)
[2018-06-27] MEDS ORDERED: SODIUM BICARBO650 MG PO (09:07)
[2018-06-27] MEDS ORDERED: K-DUR20 MEQ PO (09:07)
[2018-06-27] MEDS ORDERED: MAG-OX 400 MG400 MG PO ×2 (09:08→10:22)
[2018-06-27] MEDS ORDERED: FLAGYL500 MG PO (10:19)
== END 2018-06-07 17:43 | disposition home or self-care (01) | DRG 683 ==
LOC: D.ER 11:27 → D.M2 14:29 → D.EDHOLD 14:29 → D.M2 14:34
PROVIDERS: Family Medicine; Internal Medicine Nephrology
DX: N17.9 Acute kidney failure, unspecified (principal); M62.82 Rhabdomyolysis; E87.2 Acidosis; N18.5 Chronic kidney disease, stage 5; D63.1 Anemia in chronic kidney disease; E03.9 Hypothyroidism, unspecified; M79.671 Pain in right foot; E83.51 Hypocalcemia

== ENCOUNTER 2018-07-17 14:54 | Inpatient (IN) | payer MEDICARE ==
[~2018-07-17] VITALS: Ht 172.7 cm; Wt 98.7 kg
[~2018-07-17 14:54] MED LIST: FLAGYL 500500 MG/100 PO; FLAGYL500 MG PO; K-DUR20 MEQ PO; MAG-OX 400 MG400 MG PO; OS-CAL500 MG PO; QUESTRAN PACKET PO; ROCALTROL0.25 MCG PO; SODIUM BICARBO650 MG PO; SYNTHROID125 MCG PO
[2018-07-17 15:43] LABS: BASOPHILS 0.1 % (0-2); EOSINOPHILS 0.5 % (0-7); HEMATOCRIT 27.6 % (36.0-48.0); IMMATURE GRANULOCYTES 1.7 % (0-5); LYMPHOCYTES 16.4 % (15-50); MCH 29.2 pg (26.0-34.0); MCHC 32.6 g/dL (31.0-37.0); MCV 89.6 fL (80.0-100.0); MEAN PLATELET VOLUME 8.9 fL (7.4-10.4); MONOCYTES 8.7 % (2-11); NEUTROPHILS 72.6 % (40-80); RBC 3.08 10x6/uL (4.00-5.40); RDW 19.6 % (11.5-14.5); WBC 13.9 10x3/uL (4.8-10.8)
[2018-07-17 16:00] LABS: PLATELET COUNT 434 10x3/uL (130-400)
[2018-07-17 16:08] LABS: APPEARANCE HAZY (CLEAR); BILIRUBIN NEGATIVE (NEGATIVE); COLOR YELLOW (YELLOW); GLUCOSE NEGATIVE (NEGATIVE); KETONE NEGATIVE (NEGATIVE); NITRITE NEGATIVE (NEGATIVE); PROTEIN TRACE mg/dL (NEGATIVE); UROBILINOGEN NORMAL (NORMAL)
[2018-07-17 16:09] LABS: BACTERIA MANY /hpf (NONE SEEN); RED CELLS - URINE 0-5 /hpf (0-5)
[2018-07-17 17:31] LABS: ALBUMIN 2.2 g/dL (3.4-5.0); ALKALINE PHOSPHATASE 71 U/L (46-116); ALT (SGPT) 3 U/L (10-68); BILIRUBIN - TOTAL 0.27 mg/dL (0.2-1.3); CALC OSMOLALITY 298 mosm/kg (275-300); CALCIUM 7.3 mg/dL (8.5-10.1); CHLORIDE - SERUM 112 mmol/L (98-107); CKMB 2.5 U/L (0.0-3.6); CREATINE KINASE 261 UL (21-215); CREATININE - SERUM 5.7 mg/dL (0.6-1.3); GLUCOSE 89 mg/dL (74-106); PRO BNP 6426 pg/mL (0-125); PROTEIN - SERUM 7.1 g/dL (6.4-8.2); SODIUM 145 mmol/L (136-145); UREA NITROGEN 43 mg/dL (7-18); eGFR NON AFRICAN AMERICAN 8 mL/min (90-120)
[2018-07-17 17:38] LABS: POTASSIUM - SERUM 1.8 mmol/L (3.5-5.1)
--- NOTE | 2018-07-17 17:39 | NUR ---
LAB ON PT TROPONIN 0.180, C02 10, POTASSIUM 1.8
[2018-07-17 20:00] VITALS: BP 119/66
--- NOTE | 2018-07-17 20:30 | NUR ---
PT ASSISTED TO BED VYAS HAD X1 LIQUID BM WITH VOID, PT AAOX4, DENIES PAIN, VSS, WILL CONTINUE TO ASSESS
--- NOTE | 2018-07-17 20:56 | NUR ---
CALLED ICU, UPDATE GIVEN, ORDERS RECEIVED
[2018-07-17 21:00] VITALS: BP 129/43
[2018-07-17 21:53] LABS: CALCIUM 7.1 mg/dL (8.5-10.1); CREATININE - SERUM 5.5 mg/dL (0.6-1.3)
[2018-07-17 22:00] VITALS: BP 127/63
[2018-07-17 22:01] LABS: ANION GAP 22.1 mmol/L (8-16); CARBON DIOXIDE 12.6 mmol/L (21.0-32.0); POTASSIUM - SERUM 1.7 mmol/L (3.5-5.1)
[2018-07-17 23:00] VITALS: BP 118/85
--- NOTE | 2018-07-17 23:00 | NUR ---
REASSESSMENT PER FLOW SHEET, NO ACUTE CHANGES NOTED, REPOSITIONED FOR COMFORT, CONTINUEING K+ CORRECTION WITH MEDS, VSS WILL CONTINUE TO ASSESS
[2018-07-18] VITALS (24 sets, daily range): BP systolic 94–170; BP diastolic 53–96; BMI 23.4
--- NOTE | 2018-07-18 01:00 | NUR ---
PT RESTING IN BED, HR ELEVATED TO 130'S, LABS DRAWN, K+ & MAG LEVELS LOW, PAGED , WILL CONTINUE TO ASSESS
[2018-07-18 01:41] LABS: ALBUMIN 1.8 g/dL (3.4-5.0); BILIRUBIN - TOTAL 0.22 mg/dL (0.2-1.3); CALCIUM 7.1 mg/dL (8.5-10.1); CARBON DIOXIDE 12.7 mmol/L (21.0-32.0); CREATININE - SERUM 5.4 mg/dL (0.6-1.3); PROTEIN - SERUM 6.8 g/dL (6.4-8.2)
[2018-07-18 01:43] LABS: ANION GAP 21.8 mmol/L (8-16); MAGNESIUM - SERUM 0.9 mg/dL (1.8-2.4); POTASSIUM - SERUM 2.5 mmol/L (3.5-5.1)
--- NOTE | 2018-07-18 02:37 | NUR ---
NO RESPONSE FROM PHYSICIAN, PAGE #2, WILL CONTINUE TPO CONTACT PHYSICIAN. 0240- CALLED ICU, UPDATE GIVEN, ORDERS RECEIVED
--- NOTE | 2018-07-18 03:00 | NUR ---
REASSESSMENT COMPLETE PER FLOW SHEET, PT RESTING, DENIES PAIN, MEDS GIVEN PER MAR/ORDERS, REPOSITIONED FOR COMFORT, VSS, WILL CONTINUE TO ASSESS
--- NOTE | 2018-07-18 05:00 | NUR ---
PT APPEARS TO BE IN NO ACUTE DISTRESS, DENIES PAIN, AAOx4, INFUSING MEDS PER ORDERS, VSS WILL CONTINUE TO ASSESS
[2018-07-18 05:38] LABS: BASOPHILS 0.1 % (0-2); EOSINOPHILS 0.8 % (0-7); HEMATOCRIT 24.8 % (36.0-48.0); HEMOGLOBIN 8.2 g/dL (12-16); IMMATURE GRANULOCYTES 1.5 % (0-5); LYMPHOCYTES 16.2 % (15-50); MCHC 33.1 g/dL (31.0-37.0); MEAN PLATELET VOLUME 8.5 fL (7.4-10.4); MONOCYTES 8.3 % (2-11); NEUTROPHILS 73.1 % (40-80); PLATELET COUNT 363 10x3/uL (130-400); RBC 2.83 10x6/uL (4.00-5.40); RDW 19.6 % (11.5-14.5); WBC 11.8 10x3/uL (4.8-10.8)
[2018-07-18 05:51] LABS: MCV 87.6 fL (80.0-100.0)
[2018-07-18 06:20] LABS: ALBUMIN 1.8 g/dL (3.4-5.0); BILIRUBIN - TOTAL 0.24 mg/dL (0.2-1.3); CALCIUM 7.1 mg/dL (8.5-10.1); CARBON DIOXIDE 11.7 mmol/L (21.0-32.0); CREATININE - SERUM 5.1 mg/dL (0.6-1.3); PROTEIN - SERUM 6.6 g/dL (6.4-8.2)
[2018-07-18 06:21] LABS: ANION GAP 22.6 mmol/L (8-16); POTASSIUM - SERUM 2.3 mmol/L (3.5-5.1)
--- NOTE | 2018-07-18 07:00 | NUR ---
PATIENT RESTING IN BED AWAKE AND ALERT WITH STABLE VITAL SIGNS. NS AND K+ 10MEQ IN 100ML INFUSING THROUGH LEFT WRIST PIV. NORMAL SINUS RHYTHM. CALL RAMIREZ IN REACH. WILL CONTINUE TO MONITOR
--- NOTE | 2018-07-18 08:20 | NUR ---
INFORMED DR. WARNER OF OSMOTIC DIARHEA. NO ORDERS FOR THIS BECAUSE HE WANTS FECAL LAB SPECIMENS.
--- NOTE | 2018-07-18 08:30 | NUR ---
ASSISTED PT ON AND OFF BEDPAN TO VOID. TELEPHONE REPAIRER CLEANED. NO COMPLAINTS. CALL RAMIREZ IN REACH
--- NOTE | 2018-07-18 09:04 | NUR ---
PATIENT RESTING IN BED C CALL RAMIREZ IN REACH. 10MEQ KCL RIDER IN 100CC INFUSING OVER 1 HOUR. RESPIRATIONS NORMAL. VSS. PT AWAKE, ALERT, AND ORIENTED X 4. CALL RAMIREZ IN REACH. VSS. WILL CONTINUE TO MONITOR.
--- NOTE | 2018-07-18 09:27 | NUR ---
ATTEMPTED TO INSERT SAGE CATHETER. FAILED. INFORMED PATIENT WILL TRY AGAIN LATER.
[2018-07-18 09:34] LABS: CREATININE - SERUM 5.2 mg/dL (0.6-1.3)
[2018-07-18 09:35] LABS: ANION GAP 20.7 mmol/L (8-16); CALCIUM 6.9 mg/dL (8.5-10.1); POTASSIUM - SERUM 2.7 mmol/L (3.5-5.1)
[2018-07-18] MEDS ORDERED: CLARITHROMYCIN500 M1 PO (09:39)
[2018-07-18] MEDS ORDERED: NEURONTIN 300300 MG PO (09:40)
[2018-07-18] MEDS ORDERED: AMOXICILLIN500 M1 PO (09:42)
--- NOTE | 2018-07-18 10:02 | NUR ---
CALLED PHARMACY TO REMIND OF ROCALTROL ORDER.
--- NOTE | 2018-07-18 10:22 | NUR ---
JESUS MANUEL HAD WATER BM IN BED VYAS. COLLECTED SPECIMEN AND CLEANED PATIENT.
--- NOTE | 2018-07-18 11:32 | NUR ---
ASSISTED PT ON AND OFF OF BED VYAS FOR OSMOTIC BM. CLEANED AND CHANGED PADS.
--- NOTE | 2018-07-18 12:07 | NUR ---
PATIENT ATE 50 PERCENT OF LUNCH
--- NOTE | 2018-07-18 14:54 | NUR ---
REDUCED LR INFUSION TO 50ML/HR PER ORDER.
[2018-07-18 15:53] LABS: CARBON DIOXIDE 10.3 mmol/L (21.0-32.0); CREATININE - SERUM 4.9 mg/dL (0.6-1.3)
[2018-07-18 15:54] LABS: POTASSIUM - SERUM 3.8 mmol/L (3.5-5.1)
[2018-07-18 15:55] LABS: ANION GAP 22.5 mmol/L (8-16); CALCIUM 6.9 mg/dL (8.5-10.1)
--- NOTE | 2018-07-18 16:41 | NUR ---
PATIENT HAD SMALL OSMOTIC BM ON BED VYAS. NURSE CLEANED. VSS. CALL RAMIREZ IN REACH.
--- NOTE | 2018-07-18 16:52 | NUR ---
PAGED DR. WARNER ABOUT CRITICAL LAB VALUES
--- NOTE | 2018-07-18 16:54 | NUR ---
OBTAINED ORDERS FROM DR. WARNER FOR 1 GRAM MAG SULFATE. NO MORE BMP LABS TILL AM. PATIENT ATE 80% DINNER.
--- NOTE | 2018-07-18 17:36 | NUR ---
APPLIED HEEL CUSHIONS TO TO BOTH ANKLES TO PREVENT POTENTIAL BREAKDOWN.
--- NOTE | 2018-07-18 18:43 | NUR ---
OBTAINED NEW URINE SPECIMEN FROM CATHETER SINCE LAST URINE COLLECTION WAS CONTAMINATED.
--- NOTE | 2018-07-18 19:00 | NUR ---
PATIENT THROWING FREQUENT PAC'S--ASYMPTOMATIC--AWAKE ALERT AND ORLIENTED. INFORMED NUCLEAR OPERATOR NURSE. ELECTROLYTE LABS JUST DRAWN.
--- NOTE | 2018-07-18 19:30 | NUR ---
REPORT RECEIVED, SHIFT ASSESSMENT COMPLETED PER FLOW SHEET, PT AAOx3 MOVES ALL EXTREMITIES WITH PURPOSE, LT ARM 20g PIV INFUSING MEDS PER MAR/ORDERS, ON ICU MONITORS, VSS, SINUS RHYTHM ON MONITOR WITH OCCASIONAL PAC'S, PT DENIES PAIN OR DISCOMFORT AT THIS TIME, SAGE PATENT TO GRAVITY DRAIN, WILL CONTINUE TO ASSSESS
[2018-07-18 19:36] LABS: ANION GAP 18.2 mmol/L (8-16); CALCIUM 7.1 mg/dL (8.5-10.1); POTASSIUM - SERUM 3.3 mmol/L (3.5-5.1)
[2018-07-18 19:40] LABS: CARBON DIOXIDE 13.1 mmol/L (21.0-32.0)
--- NOTE | 2018-07-18 21:12 | NUR ---
PHYSICIAN PAGED R/T LAB VALUES K+ 3.3/ MAG 1.2
--- NOTE | 2018-07-18 21:29 | NUR ---
PHYSICIAN PAGED, SECOND ATTEMPT, HR ELEVATED TO 135bpm AT REST, OTHER VSS WILL CONTINUE TO ASSESS
--- NOTE | 2018-07-18 21:45 | NUR ---
CALLED ICU, UPDATE GIVEN ON PT, ORDERS RECEIVED; EKG, 20mEq K+ PER IV, 40mEq K+ PO, 1g MAG SULFATE IV, DR WANTS TO WAIT FOR AM LABS FOR REDRAW,
--- NOTE | 2018-07-18 22:10 | NUR ---
EKG COMPLETED, PAGED , UPDATED ON EKG, ATRIAL FLUTTER 2:1, ORDERS RECEIVED FOR 15MG DILTIAZEM BOLUS & 10MG/HR IV INFUSION DILTIAZEM, CARDIAC CONSULT TO BE COMPLETED IN AM, PT DENIES PAIN, RESTING IN BED, WILL CONTINUE TO ASSESS
--- NOTE | 2018-07-18 23:00 | NUR ---
REASSESSMENT COMPLETED PER FLOW SHEET, SECOND 20g PIV STARTED IN RT FA TO INFUSE MEDS, X1 ATTEMPT SUCCESSFUL, DRSG CDI, INFUSING MED PER ORDERS
[2018-07-19] VITALS (23 sets, daily range): BP systolic 87–144; BP diastolic 45–85; Ht 172.7 cm; Wt 98.7 kg
--- NOTE | 2018-07-19 02:26 | NUR ---
AT ICU, UPDATE GIVEN
[2018-07-19 02:54] LABS: BASOPHILS 0.1 % (0-2); EOSINOPHILS 1.5 % (0-7); HEMATOCRIT 23.5 % (36.0-48.0); HEMOGLOBIN 7.7 g/dL (12-16); IMMATURE GRANULOCYTES 2.1 % (0-5); MCH 29.2 pg (26.0-34.0); MCHC 32.8 g/dL (31.0-37.0); MEAN PLATELET VOLUME 8.5 fL (7.4-10.4); MONOCYTES 7.8 % (2-11); NEUTROPHILS 70.5 % (40-80); PLATELET COUNT 341 10x3/uL (130-400); RBC 2.64 10x6/uL (4.00-5.40); RDW 19.1 % (11.5-14.5)
[2018-07-19 03:06] LABS: ANION GAP 20.7 mmol/L (8-16); CARBON DIOXIDE 11.3 mmol/L (21.0-32.0); CREATININE - SERUM 4.5 mg/dL (0.6-1.3); MAGNESIUM - SERUM 1.3 mg/dL (1.8-2.4)
--- NOTE | 2018-07-19 09:13 | NUR ---
LISHA HERE WITH CARDIOLOGY.
[2018-07-19 11:01] LABS: ANION GAP 19.8 mmol/L (8-16); CALCIUM 7.3 mg/dL (8.5-10.1); CARBON DIOXIDE 12.2 mmol/L (21.0-32.0); CREATININE - SERUM 4.4 mg/dL (0.6-1.3); MAGNESIUM - SERUM 1.4 mg/dL (1.8-2.4)
--- NOTE | 2018-07-19 11:42 | NUR ---
CALLED LABS BOTH K AND MAG. REC'D ORDERS FOR 1GM MAG.
--- NOTE | 2018-07-19 19:30 | NUR ---
RE[PORT RECEIVED, SHIFT ASSESSMENT COMPLETED PER FLOW SHEET, PT RESTING IN BED, AAOX3, ABLE TO MAKE NEEDS KNOWN, DENIES NEEDS, REPOSITIONED IN BED, RT FA 20g PIV PATENT, DRSG CDI, INFUSING MEDS PER SEP, SALINE LOCKED 20g PIV IN LT WRIST, DRSG CDI, SAGE TO GRAVITY, ON ICU MPONITORS, VSS, WILL CONTINUE TO ASSESS
--- NOTE | 2018-07-19 23:00 | NUR ---
REASSESSMENT COMPLETED PER FLOW SHEET, NO ACUTE CHANGES NOTED, REPOSITIONED, SKIN CARE COMPLETED, NEW LINEN x2, ELEVATED HOB, VSS, WILL CONTINUE TO ASSESS
[2018-07-20] VITALS (23 sets, daily range): BP systolic 103–141; BP diastolic 52–84
[2018-07-20 06:41] LABS: BASOPHILS 0.1 % (0-2); EOSINOPHILS 1.9 % (0-7); HEMATOCRIT 22.6 % (36.0-48.0); IMMATURE GRANULOCYTES 2.5 % (0-5); LYMPHOCYTES 26.8 % (15-50); MCH 28.9 pg (26.0-34.0); MCHC 32.3 g/dL (31.0-37.0); MCV 89.3 fL (80.0-100.0); MONOCYTES 8.3 % (2-11); NEUTROPHILS 60.4 % (40-80); PLATELET COUNT 352 10x3/uL (130-400); RBC 2.53 10x6/uL (4.00-5.40); WBC 9.3 10x3/uL (4.8-10.8)
--- NOTE | 2018-07-20 06:45 | NUR ---
DAY SHIFT RN NOTIFIED OF CRITICAL LAB VALUE, REPORT GIVEN
[2018-07-20 06:46] LABS: HEMOGLOBIN 7.3 g/dL (12-16)
[2018-07-20 07:04] LABS: ALBUMIN 1.6 g/dL (3.4-5.0); ANION GAP 18.3 mmol/L (8-16); BILIRUBIN - TOTAL 0.22 mg/dL (0.2-1.3); CALCIUM 7.7 mg/dL (8.5-10.1); CARBON DIOXIDE 10.9 mmol/L (21.0-32.0); CREATININE - SERUM 3.9 mg/dL (0.6-1.3); POTASSIUM - SERUM 3.2 mmol/L (3.5-5.1); PROTEIN - SERUM 5.9 g/dL (6.4-8.2)
--- NOTE | 2018-07-20 08:54 | NUR ---
ASSISTED PT WITH BED VYAS. LOOSE BROWN STOOL NOTED. BATHED AND LINENS CHANGED.
--- NOTE | 2018-07-20 14:57 | EC ---
PATIENT:IMELDA VELASQUEZ DATE OF SERVICE: 07/17/18 SEX: F MEDICAL RECORD: [id number] DATE OF : [birth year] LOCATION:[facility] D230 AGE OF PATIENT: 72 ADMISSION DATE: 07/17/18 REFERRING PHYSICIAN: INTERPRETING PHYSICIAN: FABIANA ALCANTARA MD ECHOCARDIOGRAM REPORT ECHO CHARGES 4 ECHO COMPLETE Date: 07/19/18 CLINICAL DIAGNOSIS: A-FLUTTER ECHOCARDIOGRAPHIC MEASUREMENTS (adult normal given) AC root (d.<3.7cm) 3.1 cm LV Septum d (<1.2 cm> 1.6 cm Valve Excursion 1.8 cm LV Septum (systole) 2.3 cm Left Atria (s.<4.0cm> 4.3 cm LVPW d(<1.2cm) 1.5 cm RV (d.<2.3cm) 2.7 cm LVPW (sytole) 2.3 cm LV diastole(<5.6CM) 5.2 cm MV E-F(>70mm/sec) cm LV systole 2.9 cm LVOT Diameter 1.9 cm MV exc.(>10mm) cm Est.ejection fraction (50-75%) % DOPPLER: LVIT cm/sec A 56.0 cm/sec E 135 cm/sec LA cm/sec RVSP 51.4 mmHg LVOT 147 cm/sec AOP1/2T m/s Asc. Ao 142 cm/sec RVOT 63.0 cm/sec RA cm/sec PA 114 cm/sec AV Gradient Peak 8.0 mmHg AV Mean 4.1 mmHg AV Area 3.1 cm MV Gradient Peak 7.2 mmHg MV Mean 1.6 mmHg MV Area cm COMMENTS: Dry Drug Worker: Yamel LUNAOE Furnace Cleaner: 1 Dr. Alcantara TAPE# PACS Pericardial Effusion N DATE OF SERVICE: 07/19/2018 FINDINGS: 1. Left ventricular chamber size is within normal limits. Left ventricular systolic function is normal. Overall ejection fraction is estimated at 55%. 2. Left atrium is enlarged at 4.3 cm. Right atrium and right ventricle chamber sizes are as well mildly dilated. 3. Valvular structures have normal structure and motion. 4. Doppler interrogation reveals moderate mitral regurgitation and moderate tricuspid regurgitation. No other valvular insufficiency or stenosis. ECHOCARDIOGRAM REPORT [id number] IMELDA VELASQUEZ Pulmonary systolic pressure is estimated at 51 mmHg. 5. No evidence of pericardial effusion or left ventricular thrombus. TRANSINT:[id number] Voice Confirmation ID: [id number] DOCUMENT ID: [id number] FABIANA ALCANTARA MD at 1457 CC: [id number] DICTATION DATE: 07/19/18 1508 COIL MACHINE OPERATOR: 07/19/18 1517 ADM IN [facility] [address] [id number]
--- NOTE | 2018-07-20 19:30 | NUR ---
ASSESSMENT COMPLETE, PER NURSING FLOWSHEET, PATIENT ON BEDPAN FOR SMALL LIQUID BOWEL MOVEMENT, MAURISIO CARE PROVIDED, VSS, C/L IN REACH
--- NOTE | 2018-07-20 21:00 | NUR ---
COMPLETE LINEN CHANGE FOR LARGE BOWEL MOVEMENT THAT WAS NOT CONFINED TO BEDPAN, MAURISIO CARE PROVIDED, PATIENT REPOSITIONED, NO OTHER NEEDS VOICED OR NOTED AT THIS TIME
--- NOTE | 2018-07-20 23:00 | NUR ---
RE-ASSESSMENT COMPLETE, PARTIAL LINEN CHANGE AFTER LIQUID STOOL TO BEDPAN FOR THIS PATIENT, MAURISIO CARE PROVIDED, PATIENT REPOSITIONED, CONTINUE POC
[2018-07-21] VITALS (16 sets, daily range): BP systolic 109–143; BP diastolic 60–91
--- NOTE | 2018-07-21 01:00 | NUR ---
PATIENT REQUESTING TO USE BEDPAN FOR SMALL LIQUID STOOL, MAURISIO CARE PROVIDED, PATIENT REPOSITIONED
--- NOTE | 2018-07-21 03:00 | NUR ---
RE-ASSESSMENT COMPLETE, PER NURSING FLOWSHEET, PATIENT REQUESTING TO USE BEDPAN, SMALL LIQUID STOOL, MAURISIO CARE PROVIDED, PATIENT REPOSTIONED, NO OTHER NEEDS VOICED OR NOTED AT THIS TIME
[2018-07-21 03:14] LABS: % SATURATION 21 % (15-55); IRON 9 ug/dl (35-150); TOTAL IRON BIND CAPACITY 41 ug/dl (260-445)
[2018-07-21 03:24] LABS: UNSAT IRON BIND CAPACITY 32 ug/dl (150-375)
--- NOTE | 2018-07-21 05:00 | NUR ---
PARTIAL LINEN CHANGE FOR SMALL LIQUID STOOL, PATIENT REPOSITIONED, MAURISIO CARE PROVIDED, VSS, C/L IN REACH
--- NOTE | 2018-07-21 07:00 | NUR ---
REPORT RECEIVED FROM THE OFF GOING RN. SEE ASSESSMENT IN THE PTS FLOW SHEET. VSS. WILL CONT POC.
--- NOTE | 2018-07-21 09:25 | NUR ---
DR WARNER IN THE UNIT. OK TO TRANSFER TO [employer] [facility] ON TELMETRY.
--- NOTE | 2018-07-21 09:42 | NUR ---
Nutrition follow-up: Diet: Renal PO intake 100% of last 3 meals Labs reviewed +BM, multiple LR @ 50 ml/hr Wt: 223# RDN following.
--- NOTE | 2018-07-21 10:00 | NUR ---
ASSISTED THE PT WITH A BEDPAN. DIARRHEA NOTED. PT CLEANED. WILL CONT POC.
--- NOTE | 2018-07-21 12:30 | NUR ---
PT REQUESTED A BEDPAN. DIARRHEA NOTED. LINENES CHANGED. PT CLEANED. WILL CONT POC.
[2018-07-21 12:49] LABS: ANION GAP 16.5 mmol/L (8-16); CALCIUM 8.6 mg/dL (8.5-10.1); CARBON DIOXIDE 10.9 mmol/L (21.0-32.0); CREATININE - SERUM 3.3 mg/dL (0.6-1.3)
[2018-07-21 12:50] LABS: POTASSIUM - SERUM 4.4 mmol/L (3.5-5.1)
--- NOTE | 2018-07-21 14:29 | NUR ---
PT ASSISTED ON THE BEDPAN. DIARRHEA NOTED. PT CLEANED. WILL CONT POC.
--- NOTE | 2018-07-21 17:02 | NUR ---
REPORT CALLED AND GIVEN TO SYBIL BRYAN ON MED 3. PT LEFT IN A STABLE CONDITION. ALL BELONINGS ACCOUTNED FOR.
--- NOTE | 2018-07-21 17:23 | NUR ---
PT RECIEVED FROM ICU. NO SIGNS OF DISTRESS. IV TO RIGHT WRIST PATENT NO REDNESS OR TENDERNESS. HAS SAGE NO KINKS. DENIES ANY NEED AT THIS TIME. CALL LIGHT IN REACH. BED LOW POSITION. NO FAMILY AT BEDSIDE.
--- NOTE | 2018-07-21 19:35 | NUR ---
SITTING UP IN BED. ALERT AND ORIENTED X3. RESP EVEN AND NONLABORED. DENIES PAIN. 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 TELEMETRY SHOWS SR WITH RATE OF 62. SAGE CATH PATENT AND DRAINING CLEAR YELLOW URINE. LR @ 50 ML/HR INFUSING IN RT FOREARM WITHOUT DIFF. NO EDEMA NOTED. SR ELEVATED X2. CL IN REACH. GEN WEAKNESS NOTED.
--- NOTE | 2018-07-21 20:34 | MORECARE ---
CASE MANAGEMENT DISCHARGE SUMMARY PATIENT: IMELDA VELASQUEZ UNIT: [id number] ADM DATE: 07/17/18 AGE: 72 : 45 SEX: F ROOM/BED: D.1203 AUTHOR: JOSE CARNES PHYSICIAN: REFERRING PHYSICIAN: JOHN WARNER MD DATE OF SERVICE: 07/21/18 Discharge Plan Patient Name: IMELDA VELASQUEZ [facility] [facility] 1945 Planned Disposition: Home Anticipated Discharge Date: Discharge Date: Expected LOS: Initial Reviewer: [email or web address] Initial Review Date: 07/21/2018 Generated: 07/21/18 9:33 pm Patient Name: IMELDA VELASQUEZ Page 12805 at 2033 All edits/amendments must be made on the electronic document DICTATION DATE: 07/21/182032 TAILOR WOMEN'S GARMENT ALTERATION: LYUBOV 07/21/182032 RPT#: [id number] DC DATE: STATUS: ADM IN [facility] [address] [place] [address] END OF REPORT
--- NOTE | 2018-07-21 20:40 | MORECARE ---
CASE MANAGEMENT DISCHARGE SUMMARY PATIENT: IMELDA VELASQUEZ UNIT: [id number] ADM DATE: 07/17/18 AGE: 72 : 45 SEX: F ROOM/BED: D.1203 AUTHOR: JOSE CARNES PHYSICIAN: REFERRING PHYSICIAN: JOHN WARNER MD DATE OF SERVICE: 07/21/18 Discharge Plan Patient Name: IMELDA VELASQUEZ [facility] [facility] 1945 Planned Disposition: Home Anticipated Discharge Date: Discharge Date: Expected LOS: Initial Reviewer: [email or web address] Initial Review Date: 07/21/2018 Generated: 07/21/18 9:40 pm DCPIA - Discharge Planning Initial Assessment Updated by [email or web address]: Santa Maza on 07/21/18 8:34 pm * Is the patient Alert and Oriented? Yes * How many steps to enter\exit or inside your home? * PCP DR. AKERS IN [place] * Pharmacy [facility] IN [place] * Preadmission Environment Home with Family * ADLs Independent * Equipment Walker * List name and contact numbers for known caregivers / representatives who currently or will assist patient after discharge: RSUS COHEN - DAUGHTER- [phone] MARSHA ALLEN - GRANDDAUGHTER [phone] * Verbal permission to speak to the caregivers and representatives has been obtained from the patient. Yes * Community resources currently utilized Home Health * Please name any agencies selected above. [facility] * Additional services required to return to the preadmission environment? No * Can the patient safely return to the preadmission environment? Yes * Has this patient been hospitalized within the prior 30 days at any hospital? Yes Last DP export: 07/21/18 7:33 Patient Name: IMELDA VELASQUEZ Page [id number] at 2040 All edits/amendments must be made on the electronic document DICTATION DATE: 07/21/182038 SILK SOAKER: LYUBOV 07/21/182038 RPT#: [id number] DC DATE: STATUS: ADM IN [facility] [address] [place] [address] END OF REPORT
--- NOTE | 2018-07-21 20:59 | MORECARE ---
CASE MANAGEMENT DISCHARGE SUMMARY PATIENT: IMELDA VELASQUEZ UNIT: [id number] ADM DATE: 07/17/18 AGE: 72 : 45 SEX: F ROOM/BED: D.1203 AUTHOR: DEYVIDOC PHYSICIAN: REFERRING PHYSICIAN: JOHN WARNER MD DATE OF SERVICE: 07/21/18 Discharge Plan Patient Name: IMELDA VELASQUEZ Facility: [facility]:[place] : 1945 Planned Disposition: Home Anticipated Discharge Date: Discharge Date: Expected LOS: Initial Reviewer: [email or web address] Initial Review Date: 07/21/2018 Generated: 07/21/18 9:59 pm Comments DCP- Discharge Planning Updated by [email or web address]: Santa Maza on 07/21/18 7:[address] Late Entry 07/21/18 @ 1230 Patient Name: IMELDA VELASQUEZ Admission Status: ER Accout number: [id number] Admission Date: 07-17-2018 : 1945 Admission Diagnosis: Attending: JOHN WARNER Current LOS: 4 Anticipated DC Date: Planned Disposition: Home Primary Insurance: MEDICARE A & B Discharge Planning Comments: CM met with patient and daughter (Azul Cornell) [phone] at bedside after obtaining verbal consent. Patient states she lives at home with her daughter and plans to return after discharge. Patient states that she does have [facility] and plans on resuming care with them on discharge. CM will continue to follow and assist with discharge planning/ needs Curriculum Director: Santa Maza DCPIA - Discharge Planning Initial Assessment Updated by [email or web address]: Santa Maza on 07/21/18 8:34 pm * Is the patient Alert and Oriented? Yes * How many steps to enter\exit or inside your home? * PCP DR. AKERS IN [place] * Pharmacy [facility] IN [place] * Preadmission Environment Home with Family * ADLs Independent * Equipment Walker * List name and contact numbers for known caregivers / representatives who currently or will assist patient after discharge: AZUL CORNELL - DAUGHTER- [phone] MARSHA ALLEN - GRANDDAUGHTER [phone] * Verbal permission to speak to the caregivers and representatives has been obtained from the patient. Yes * Community resources currently utilized Home Health * Please name any agencies selected above. [facility] * Additional services required to return to the preadmission environment? No * Can the patient safely return to the preadmission environment? Yes * Has this patient been hospitalized within the prior 30 days at any hospital? Yes Last DP export: 07/21/18 7:40 Patient Name: IMELDA VELASQUEZ Page [id number] at 205 All edits/amendments must be made on the electronic document DICTATION DATE: 07/21/182057 DISPLAY CARVER: LYUBOV 07/21/182057 RPT#: [id number] DC DATE: STATUS: ADM IN [facility] [address] [place] [address] END OF REPORT
[2018-07-22] VITALS: BP 129/76
--- NOTE | 2018-07-22 00:21 | NUR ---
LYING ON LT SIDE IN BED WITH EYES CLOSED. NO DISTRESS. HOB ELEVATED. SR ELEVATED X2. CL IN REACH.
[2018-07-22 04:00] VITALS: BP 137/73
[2018-07-22 07:06] LABS: BASOPHILS 0.2 % (0-2); EOSINOPHILS 1.7 % (0-7); HEMATOCRIT 24.8 % (36.0-48.0); HEMOGLOBIN 7.8 g/dL (12-16); LYMPHOCYTES 24.4 % (15-50); MCH 28.8 pg (26.0-34.0); MCHC 31.5 g/dL (31.0-37.0); MCV 91.5 fL (80.0-100.0); MEAN PLATELET VOLUME 9.2 fL (7.4-10.4); MONOCYTES 8.4 % (2-11); NEUTROPHILS 63.3 % (40-80); PLATELET COUNT 343 10x3/uL (130-400); RBC 2.71 10x6/uL (4.00-5.40); RDW 18.5 % (11.5-14.5); WBC 10.1 10x3/uL (4.8-10.8)
[2018-07-22 07:55] LABS: ANION GAP 18.5 mmol/L (8-16); CALCIUM 8.6 mg/dL (8.5-10.1); CARBON DIOXIDE 12.8 mmol/L (21.0-32.0); CREATININE - SERUM 3.1 mg/dL (0.6-1.3); MAGNESIUM - SERUM 1.9 mg/dL (1.8-2.4); POTASSIUM - SERUM 4.3 mmol/L (3.5-5.1)
[2018-07-22 11:33] VITALS: BP 144/75
[2018-07-22 16:41] VITALS: BP 155/72
[2018-07-22 19:40] VITALS: BP 142/61
--- NOTE | 2018-07-22 20:38 | NUR ---
PATIENT RESTING IN BED WITH NO S/S OF DISTRESS. CLEANED PATIENT UP AFTER SMALL INCONTIENT BM. ADMINISTERED MEDS PER ORDERS. PATIENT DENIES OTHER NEEDS AT THIS TIME. BED IN LOWEST POSITION AND CALL LIGHT WITHIN REACH. ENCOURAGED THE PATIENT TO CALL IF SHE HAS NEEDS.
--- NOTE | 2018-07-22 22:54 | NUR ---
CLEANED PATIENT UP AFTER INCONTINENT BM.
[2018-07-22 23:55] VITALS: BP 165/57
[2018-07-23 03:45] VITALS: BP 129/67
--- NOTE | 2018-07-23 05:10 | NUR ---
CLEANED PATIENT UP AFTER INCONTINENT BM
--- NOTE | 2018-07-23 05:20 | NUR ---
SWELLING NOTED AT PATIENT'S IV SITE IN HER RIGHT FA. REMOVED IV WITH CATH TIP INTACT. ATTEMPTED NEW IV AND WAS INSUCCESSFUL
--- NOTE | 2018-07-23 06:15 | NUR ---
IRVIN KAUR ATTEMPTED TO RESTART PATIENT'S IV AND WAS UNSUCCESSFUL
--- NOTE | 2018-07-23 06:35 | NUR ---
IRVIN GUILLORY ATTEMPTED TO RESITE THE PATIENT'S IV AND WAS UNSUCCESSFUL
--- NOTE | 2018-07-23 07:06 | NUR ---
GISELLA RN ATTEMPTED IV AND WAS UNSUCCESSFUL
[2018-07-23 08:25] VITALS: BP 131/63
[2018-07-23 09:21] LABS: BASOPHILS 0.2 % (0-2); EOSINOPHILS 1.9 % (0-7); IMMATURE GRANULOCYTES 1.5 % (0-5); MCH 29.3 pg (26.0-34.0); MCV 91.6 fL (80.0-100.0); MEAN PLATELET VOLUME 8.7 fL (7.4-10.4); MONOCYTES 8.2 % (2-11); NEUTROPHILS 70.2 % (40-80); PLATELET COUNT 275 10x3/uL (130-400); RBC 2.73 10x6/uL (4.00-5.40); RDW 17.9 % (11.5-14.5); WBC 10.3 10x3/uL (4.8-10.8)
[2018-07-23 09:29] LABS: CALCIUM 8.9 mg/dL (8.5-10.1); CARBON DIOXIDE 13.9 mmol/L (21.0-32.0); MAGNESIUM - SERUM 1.7 mg/dL (1.8-2.4); POTASSIUM - SERUM 3.9 mmol/L (3.5-5.1)
[2018-07-23 12:01] VITALS: BP 139/88
--- NOTE | 2018-07-23 13:00 | NUR ---
CALLED TELEVISION SCRIPT WRITER. HELPED START IV ON PT LEFT HAND, 20G IV. PT CURRENTLY RECIEVING LR. WILL CTM. BED IN LOW. CL IN REACH.
[2018-07-23 16:00] VITALS: BP 150/63
[2018-07-23 20:00] VITALS: BP 122/65
--- NOTE | 2018-07-23 20:35 | NUR ---
PATIENT RESTING IN BED AND DENIES NEEDS AT THIS TIME. ADMINISTERED MEDS PER ORDERS. PATIENT DENIES OTHER NEEDS AT THIS TIME. BED IN LOWEST POSITION AND CALL LIGHT WITHIN REACH. ENCOURAGED THE PATIENT TO CALL IF SHE HAS OTHER NEEDS.
--- NOTE | 2018-07-23 21:45 | NUR ---
PATIENT HAD LARGE INCONTINENT BM. CLEANED PATIENT UP AND CHANGED HER LINENS.
[2018-07-24] VITALS: BP 137/65
[2018-07-24 04:00] VITALS: BP 124/61
[2018-07-24 07:11] LABS: BASOPHILS 0.2 % (0-2); EOSINOPHILS 1.5 % (0-7); HEMATOCRIT 24.8 % (36.0-48.0); HEMOGLOBIN 7.8 g/dL (12-16); IMMATURE GRANULOCYTES 1.2 % (0-5); LYMPHOCYTES 23.3 % (15-50); MCH 28.8 pg (26.0-34.0); MCHC 31.5 g/dL (31.0-37.0); MCV 91.5 fL (80.0-100.0); MEAN PLATELET VOLUME 9.2 fL (7.4-10.4); MONOCYTES 9.3 % (2-11); NEUTROPHILS 64.5 % (40-80); PLATELET COUNT 253 10x3/uL (130-400); RBC 2.71 10x6/uL (4.00-5.40); RDW 17.6 % (11.5-14.5)
[2018-07-24 07:15] LABS: ANION GAP 16.7 mmol/L (8-16); CALCIUM 8.2 mg/dL (8.5-10.1); CREATININE - SERUM 2.8 mg/dL (0.6-1.3); MAGNESIUM - SERUM 1.6 mg/dL (1.8-2.4); POTASSIUM - SERUM 3.7 mmol/L (3.5-5.1)
--- NOTE | 2018-07-24 10:00 | NUR ---
REFUSED BREAKFAST TRAY. STATED SHE DIDN;T EAT EGGS. REFUSED OFFER OF ALTERNATIVE MEAL WELL.
--- NOTE | 2018-07-24 15:30 | NUR ---
AMBULATED IN HALLWAY WITH PT. NO C/O WITH ACTIVITY.
[2018-07-24 16:06] VITALS: BP 148/70
[2018-07-24 16:20] VITALS: BP 144/71
[2018-07-24 20:00] VITALS: BP 144/72
--- NOTE | 2018-07-24 20:03 | NUR ---
THE PATIENT WASS LYING IN BED WHEN STAFF ENTERED THE PATIENTS ROOM. BED IS IN TH ELOW POSITION WITH SIDERAILS UP X2 AND CALL LIGHT WITHIN REACH. SAGE PRODUCING CLEAR YELLOW URINE. THE PATIENT DEMONSTRATES APPROPRIATE USE OF A CALL LIGHT VIA TEACHBACK METHOD. THE PATIENT HAS NO QUESTIONS OR CONCERNS AT THIS TIME.
[2018-07-25] VITALS: BP 124/73
[2018-07-25 03:09] LABS: ALP - ISO (ALP) 66 IU/L (39-117); ALP - ISO (BONE) FRACTION 33 % (14-68); ALP - ISO (LIVER) FRACTION 67 % (18-85); ALP - ISO(INTESTINAL) FRACTION 0 % (0-18)
--- NOTE | 2018-07-25 03:50 | NUR ---
THE PATIENT APPEARS TO BE SLEEPING. BED IS IN THE LOW POSITION WITH SIDERAILS UP X2 AND CALL LIGHT WITHIN REACH.
[2018-07-25 04:00] VITALS: BP 140/61
[2018-07-25 07:03] LABS: BASOPHILS 0.1 % (0-2); EOSINOPHILS 1.6 % (0-7); HEMATOCRIT 22.7 % (36.0-48.0); IMMATURE GRANULOCYTES 1.5 % (0-5); LYMPHOCYTES 25.5 % (15-50); MCH 29.1 pg (26.0-34.0); MCHC 31.7 g/dL (31.0-37.0); MCV 91.9 fL (80.0-100.0); MEAN PLATELET VOLUME 9.2 fL (7.4-10.4); MONOCYTES 9.8 % (2-11); NEUTROPHILS 61.5 % (40-80); PLATELET COUNT 252 10x3/uL (130-400); RBC 2.47 10x6/uL (4.00-5.40); RDW 17.6 % (11.5-14.5); WBC 8.9 10x3/uL (4.8-10.8)
[2018-07-25 07:13] LABS: HEMOGLOBIN 7.2 g/dL (12-16)
--- NOTE | 2018-07-25 07:33 | NUR ---
PT LYING IN BED. CL IN REACH. PT DENIES NEEDS AT THIS TIME OR PAIN. BED IN LOW POSITION. WILL CONTINUE TO MONITOR.
[2018-07-25 07:35] LABS: ANION GAP 15.7 mmol/L (8-16); CALCIUM 8.6 mg/dL (8.5-10.1); CARBON DIOXIDE 16.6 mmol/L (21.0-32.0); CREATININE - SERUM 2.7 mg/dL (0.6-1.3); MAGNESIUM - SERUM 1.6 mg/dL (1.8-2.4); POTASSIUM - SERUM 3.3 mmol/L (3.5-5.1)
[2018-07-25 08:28] VITALS: BP 160/76
--- NOTE | 2018-07-25 09:10 | NUR ---
RESTING QUIETLY IN BED. RECORDER GRAVITY PROSPECTING SHOWING SB 48 PER TECH.
--- NOTE | 2018-07-25 11:00 | NUR ---
PT LYING IN BED. CL IN REACH. PT DENIES NEEDS OR PAIN. SAGE INTACT, URINE WNL. WCTM
[2018-07-25 13:23] VITALS: BP 148/67
--- NOTE | 2018-07-25 14:03 | NUR ---
PT LYING IN BED. CL IN REACH. PT HAS ORDERS TO TRANSFUSE AND CONSENT IS SIGNED. WILL CONTINUE TO MONITOR. PT ALSO HAS ORDER TO DC SAGE. ORDERS ARE FOR PT TO DC TOMORROW.
[2018-07-25 16:03] VITALS: BP 105/59
--- NOTE | 2018-07-25 16:30 | NUR ---
PRBC INFUSION STARTED AT 100 CC/HR VIA PUMP TO L FA IV. VSS. DENIES ANY NEEDS AT THIS TIME.
--- NOTE | 2018-07-25 17:20 | NUR ---
REMOVED SAGE CATH. PT TOLERATED WELL. URINE YELLOW, CLEAR. DENIES PAIN. WILL CONTINUE TO MONITOR. CL IN REACH
--- NOTE | 2018-07-25 19:29 | NUR ---
THE PATIENT WAS LYING IN BED, AND WAS SPEAKING TO STAFF. BED IN THE LOW POSITION WITH SIDERAILS UP X2 AND CALL LIGHT WITHIN REACH. PATIENT DEMONSTRATES APPROPRIATE USE OF A CALL LIGHT. THE PATIENT HAS NO QUESTIONS OR CONCERNS AT THIS TIME.
[2018-07-25 20:00] VITALS: BP 149/68
--- NOTE | 2018-07-25 20:14 | NUR ---
PRBC TRANSFUSION COMPLETE WITH NO ADVERSE REACTIONS.
[2018-07-26] VITALS: BP 150/73
--- NOTE | 2018-07-26 02:58 | NUR ---
PATIENT USING BED VYAS. THE PATIENT HAS NO QUESTIONS OR CONCERNS.
[2018-07-26 04:00] VITALS: BP 142/58
[2018-07-26 06:26] LABS: BASOPHILS 0.2 % (0-2); EOSINOPHILS 1.2 % (0-7); HEMATOCRIT 26.7 % (36.0-48.0); HEMOGLOBIN 8.5 g/dL (12-16); IMMATURE GRANULOCYTES 1.8 % (0-5); MCH 28.2 pg (26.0-34.0); MCHC 31.8 g/dL (31.0-37.0); MEAN PLATELET VOLUME 9.8 fL (7.4-10.4); MONOCYTES 10.2 % (2-11); NEUTROPHILS 64.6 % (40-80); PLATELET COUNT 230 10x3/uL (130-400); RDW 19.1 % (11.5-14.5); WBC 11.1 10x3/uL (4.8-10.8)
[2018-07-26 06:30] LABS: MCV 88.7 fL (80.0-100.0); RBC 3.01 10x6/uL (4.00-5.40)
[2018-07-26 06:50] LABS: ANION GAP 18.5 mmol/L (8-16); CALCIUM 8.9 mg/dL (8.5-10.1); CARBON DIOXIDE 17.2 mmol/L (21.0-32.0); CREATININE - SERUM 2.7 mg/dL (0.6-1.3); MAGNESIUM - SERUM 1.6 mg/dL (1.8-2.4); POTASSIUM - SERUM 3.7 mmol/L (3.5-5.1)
--- NOTE | 2018-07-26 07:35 | NUR ---
PT IN BED, RESTING COMFORTABLY, EASILY AROUSES TO VOICE, RESP EVEN AND NONLABORED ON RA. LT FA INFUSING NS AT 75CC/HR. BEDSIDE RAILS X2, CALL LIGHT IN REACH, NAD NOTED, WILL CONTINUE TO PLAN OF CARE.
[2018-07-26 07:45] VITALS: BP 155/74
--- NOTE | 2018-07-26 08:19 | NUR ---
AM MEDS GIVEN AT THIS TIME. PT IN BED, DENIES ANY NEEDS AT THIS TIME. CALL LIGHT IN REACH, NAD NOTED, WILL CONTINUE TO MONITOR.
[2018-07-26 11:28] VITALS: BP 141/75
[2018-07-26] MEDS ORDERED: SODIUM BICARBO650 MG PO (12:07)
[2018-07-26] MEDS ORDERED: K-DUR20 MEQ PO (12:07)
[2018-07-26] MEDS ORDERED: MAG-OX 400 MG400 MG PO (12:07)
--- NOTE | 2018-07-26 13:01 | NUR ---
PROVIDED VERBAL AND WRITTEN DISCHARGE TEACHING TO PT, WHO VERBALIZED UNDERSTANDING REGARDING TEACHING. D/C LT FA IV WITH CATHETER TIP INTACT. PT LEFT UNIT VIA WHEELCHAIR, WITH ALL BELONGINGS ACCOMPANIED BY FAMILY, NAD NOTED.
--- NOTE | 2018-07-26 13:30 | MORECARE ---
CASE MANAGEMENT DISCHARGE SUMMARY PATIENT: IMELDA VELASQUEZ UNIT: [id number] ADM DATE: 07/17/18 AGE: 72 : 45 SEX: F ROOM/BED: D.1203 AUTHOR: DEYVI,DOC PHYSICIAN: REFERRING PHYSICIAN: JOHN WARNER MD DATE OF SERVICE: 07/26/18 Discharge Plan Patient Name: IMELDA VELASQUEZ [facility]:[place] : 1945 Planned Disposition: Home Anticipated Discharge Date: Discharge Date: 07/26/2018 Expected LOS: Initial Reviewer: [email or web address] Initial Review Date: 07/21/2018 Generated: 07/26/18 2:30 pm Comments DCP- Discharge Planning Updated by [email or web address]: Santa Maza on 07/21/18 7:[address] Late Entry 07/21/18 @ 1230 Patient Name: IMELDA VELASQUEZ Admission Status: ER Accout number: [id number] Admission Date: 07-17-2018 : 1945 Admission Diagnosis: Attending: JOHN WARNER Current LOS: 4 Anticipated DC Date: Planned Disposition: Home Primary Insurance: MEDICARE A & B Discharge Planning Comments: CM met with patient and daughter (Azul Cornell) [phone] at bedside after obtaining verbal consent. Patient states she lives at home with her daughter and plans to return after discharge. Patient states that she does have [facility] and plans on resuming care with them on discharge. CM will continue to follow and assist with discharge planning/ needs See Wheeler: Santa Maza DCPIA - Discharge Planning Initial Assessment Updated by [email or web address]: [place] Maza on 07/21/18 8:34 pm * Is the patient Alert and Oriented? Yes * How many steps to enter\exit or inside your home? * PCP DR. AKERS IN [place] * [facility] [place] * Preadmission Environment Home with Family * ADLs Independent * Equipment Walker * List name and contact numbers for known caregivers / representatives who currently or will assist patient after discharge: AZUL CORNELL - DAUGHTER- [phone] MARSHA ALLEN - GRANDDAUGHTER [phone] * Verbal permission to speak to the caregivers and representatives has been obtained from the patient. Yes * Community resources currently utilized Home Health * Please name any agencies selected above. [facility] * Additional services required to return to the preadmission environment? No * Can the patient safely return to the preadmission environment? Yes * Has this patient been hospitalized within the prior 30 days at any hospital? Yes External Providers External Provider: [facility] Next Contact Date: Service Request Date: Service Type: Resolution: Reviewer: Comments: Last DP export: 07/21/18 7:59 Patient Name: IMELDA VELASQUEZ Page 17200 at 1330 All edits/amendments must be made on the electronic document DICTATION DATE: 07/26/18 1330 BIOENGINEER: [email or web address] 07/26/18 1330 RPT#: [id number] DC DATE:07/26/18 STATUS: DIS IN [facility] [address] [place] [address] END OF REPORT
--- NOTE | 2018-07-26 13:40 | MORECARE ---
CASE MANAGEMENT DISCHARGE SUMMARY PATIENT: IMELDA VELASQUEZ UNIT: [id number] ADM DATE: 07/17/18 AGE: 72 : 45 SEX: F ROOM/BED: D.1203 AUTHOR: JOSE CARNES PHYSICIAN: REFERRING PHYSICIAN: JOHN WARNER MD DATE OF SERVICE: 07/26/18 Discharge Plan Patient Name: IMELDA VELASQUEZ Facility: [facility]:[place] : 1945 Planned Disposition: Home Anticipated Discharge Date: 07/26/18 Discharge Date: 07/26/2018 Expected LOS: 9 Initial Reviewer: [email or web address] Initial Review Date: 07/21/2018 Generated: 07/26/18 2:39 pm Comments DCP- Discharge Planning Updated by [email or web address]: Saniya Cain on 07/26/18 12:[address] Patient Name: IMELDA VELASQUEZ Encounter No: [id number] : 1945 Primary Insurance: MEDICARE A & B Anticipated DC Date: Planned Disposition: Home Health External Planned Provider: : DCP follow-up note: Late entry for 12:55 Patient in agreement with discharge plan. No changes to plan. Patient will discharge home and [facility] will resume services. CM explained and served DC [facility]. Cm called [facility] and spoke with Jill. Agency will resume home health services Tuesday. Faxed records as requested. Case management will follow and assist as needed. Saniya Cain DCP- Discharge Planning Updated by [email or web address]: Santa Maza on 07/21/18 7:[address] Late Entry 07/21/18 @ 1230 Patient Name: IMELDA VELASQUEZ Admission Status: ER Accout number: [id number] Admission Date: 07-17-2018 : 1945 Admission Diagnosis: Attending: JOHN WARNER Current LOS: 4 Anticipated DC Date: Planned Disposition: Home Primary Insurance: MEDICARE A & B Discharge Planning Comments: CM met with patient and daughter (Azul Cornell) [phone] at bedside after obtaining verbal consent. Patient states she lives at home with her daughter and plans to return after discharge. Patient states that she does have [facility] and plans on resuming care with them on discharge. CM will continue to follow and assist with discharge planning/ needs [place]: Santa [place] - Discharge Planning Initial Assessment Updated by [email or web address]: [place] Maza on 07/21/18 8:34 pm * Is the patient Alert and Oriented? Yes * How many steps to enter\exit or inside your home? * PCP DR. AKERS IN [place] * Pharmacy [facility] IN [place] * Preadmission Environment Home with Family * ADLs Independent * Equipment Walker * List name and contact numbers for known caregivers / representatives who currently or will assist patient after discharge: AZUL CORNELL - DAUGHTER- [phone] MARSHA ALLEN - GRANDDAUGHTER [phone] * Verbal permission to speak to the caregivers and representatives has been obtained from the patient. Yes * Community resources currently utilized Home Health * Please name any agencies selected above. [facility] * Additional services required to return to the preadmission environment? No * Can the patient safely return to the preadmission environment? Yes * Has this patient been hospitalized within the prior 30 days at any hospital? Yes Coverage Notice Reviewer: [email or web address] Eva Cain Notice Issued Date-Time: 07/26/2018 12:55 Notice Type: IM Discharge Notice Notice Delivered To: Patient Relationship to Patient: Self Hand Binder Cutter Name: Delivery Method: HAND - Hand Delivered Radha Days: Prior Verbal Notification: Recipient Understood Notice: Yes Recipient Signature: Yes Med Rec Note Co-signed by Attending: Coverage Notice Comment: Last DP export: 07/26/18 12:30 pm Patient Name: IMELDA VELASQUEZ Page [id number] at 1340 All edits/amendments must be made on the electronic document DICTATION DATE: 07/26/18 1339 CLINICAL OB: DM 07/26/18 1339 RPT#: [id number] DC DATE:07/26/18 STATUS: DIS IN [facility] [address] [place] [address] END OF REPORT
--- NOTE | 2018-07-26 16:14 | NUR ---
FAMILY PICKED UP PT'S MEDICATIONS THAT WERE LEFT IN PHARMACY.
== END 2018-07-26 13:10 | disposition home health service (06) | DRG 640 ==
LOC: D.ER 14:54 → D.EDHOLD 18:39 → D.ICU 18:39 → D.M3 07-21 16:43
PROVIDERS: Family Medicine; ADMIT Internal Medicine Nephrology
DX: E87.6 Hypokalemia (principal); N17.0 Acute kidney failure with tubular necrosis; N39.0 Urinary tract infection, site not specified; I48.92 Unspecified atrial flutter; N18.9 Chronic kidney disease, unspecified; E83.51 Hypocalcemia; E86.9 Volume depletion, unspecified; R62.7 Adult failure to thrive; E03.9 Hypothyroidism, unspecified; I95.9 Hypotension, unspecified

== ENCOUNTER 2018-09-06 01:25 | Inpatient (IN) | payer MEDICARE ==
[2018-09-06] VITALS (9 sets, daily range): BP systolic 132–149; BP diastolic 63–92; Ht 172.7 cm; Wt 108.0 kg
[~2018-09-06] VITALS: Ht 172.7 cm; Wt 108.0 kg
[~2018-09-06 01:25] MED LIST changes: +AMOXICILLIN500 M1 PO; +CLARITHROMYCIN500 M1 PO; +NEURONTIN 300300 MG PO
[2018-09-06 02:24] LABS: HEMATOCRIT 30.9 % (36.0-48.0); HEMOGLOBIN 9.9 g/dL (12-16); MCH 28.9 pg (26.0-34.0); MCV 90.1 fL (80.0-100.0); MEAN PLATELET VOLUME 8.7 fL (7.4-10.4); PLATELET COUNT 415 10x3/uL (130-400); RBC 3.43 10x6/uL (4.00-5.40); RDW 17.5 % (11.5-14.5); WBC 25.6 10x3/uL (4.8-10.8)
[2018-09-06 02:35] LABS: ALBUMIN 2.2 g/dL (3.4-5.0); ANION GAP 25.6 mmol/L (8-16); BILIRUBIN - TOTAL 0.18 mg/dL (0.2-1.3); CALCIUM 7.9 mg/dL (8.5-10.1); PROTEIN - SERUM 7.9 g/dL (6.4-8.2)
[2018-09-06 02:37] LABS: CARBON DIOXIDE 7.4 mmol/L (21.0-32.0)
[2018-09-06 02:39] LABS: LYMPHOCYTES 5 % (15-50); MONOCYTES 2 % (2-11); NEUTROPHILS 86 % (40-80); PLATELET ESTIMATE NORMAL
[2018-09-06 04:25] LABS: APPEARANCE CLOUDY (CLEAR); BILIRUBIN NEGATIVE (NEGATIVE); COLOR YELLOW (YELLOW); GLUCOSE NEGATIVE (NEGATIVE); KETONE NEGATIVE (NEGATIVE); NITRITE NEGATIVE (NEGATIVE); PROTEIN 2+ mg/dL (NEGATIVE); SPECIFIC GRAVITY 1.015 (1.005-1.020); UROBILINOGEN NORMAL (NORMAL)
[2018-09-06 04:28] LABS: EPITHELIAL CELLS 0-5 /hpf (0-5); RED CELLS - URINE 0-5 /hpf (0-5)
[2018-09-06 04:29] LABS: BACTERIA FEW /hpf (NONE SEEN); GRANULAR CAST 0-5 /lpf (NONE SEEN); YEAST >1+ /hpf (NONE SEEN)
[2018-09-06] MEDS ORDERED: FERROUS GLUCON324 MG PO (07:45)
[2018-09-06] MEDS ORDERED: SYNTHROID200 MC1 PO (07:47)
[2018-09-06 09:23] LABS: % SATURATION 29 % (15-55); IRON 32 ug/dl (35-150); TOTAL IRON BIND CAPACITY 108 ug/dl (260-445); UNSAT IRON BIND CAPACITY 76 ug/dl (150-375)
[2018-09-06 11:05] LABS: PATH REVIEW PERIPHERAL SMEAR REVIEWED
--- NOTE | 2018-09-06 18:09 | MORECARE ---
CASE MANAGEMENT DISCHARGE SUMMARY PATIENT: IMELDA VELASQUEZ UNIT: [id number] ADM DATE: 09/06/18 AGE: 72 : 45 SEX: F ROOM/BED: D.2106 AUTHOR: JOSE CARNES PHYSICIAN: REFERRING PHYSICIAN: REMY WAHL MD DATE OF SERVICE: 09/06/18 Discharge Plan Patient Name: IMELDA VELASQUEZ [facility] [facility] 1945 Planned Disposition: Fci Facility Anticipated Discharge Date: 09/08/18 Discharge Date: Expected LOS: 2 Initial Reviewer: [email or web address] Initial Review Date: 09/06/2018 Generated: 09/06/18 7:09 pm Patient Name: IMELDA VELASQUEZ Page 64779 at 1809 All edits/amendments must be made on the electronic document DICTATION DATE: 09/06/181808 REMELT FURNACE EXPEDITER: [email or web address] 09/06/181808 RPT#: [id number] DC DATE: STATUS: ADM IN [facility] [address] [place] [address] END OF REPORT
--- NOTE | 2018-09-06 18:18 | MORECARE ---
CASE MANAGEMENT DISCHARGE SUMMARY PATIENT: IMELDA VELASQUEZ UNIT: [id number] ADM DATE: 09/06/18 AGE: 72 : 45 SEX: F ROOM/BED: D.2106 AUTHOR: JOSE CARNES PHYSICIAN: REFERRING PHYSICIAN: REMY WAHL MD DATE OF SERVICE: 09/06/18 Discharge Plan Patient Name: IMELDA VELASQUEZ Facility: [facility]:[place] : 1945 Planned Disposition: Retirement Facility Anticipated Discharge Date: 09/08/18 Discharge Date: Expected LOS: 2 Initial Reviewer: [email or web address] Initial Review Date: 09/06/2018 Generated: 09/06/18 7:18 pm DCPIA - Discharge Planning Initial Assessment Updated by [email or web address]: Hugo Dietrich on 09/06/18 6:15 pm * Is the patient Alert and Oriented? Yes * How many steps to enter\exit or inside your home? * PCP DR. AKERS IN [place] * Pharmacy [facility] IN [place] * Preadmission Environment Home with Family * ADLs Partial Dependent * Partial ADLs (Assistance needed) Medication Management * Equipment Rolling Walker Walker * Other Equipment NO MEDICAL EQUIPMENT PROVIDER PREFERENCE * List name and contact numbers for known caregivers / representatives who currently or will assist patient after discharge: RUSS COHEN DTR, * Verbal permission to speak to the caregivers and representatives has been obtained from the patient. Yes * Community resources currently utilized None * Please name any agencies selected above. NONE * Additional services required to return to the preadmission environment? Yes * Can the patient safely return to the preadmission environment? Yes * Has this patient been hospitalized within the prior 30 days at any hospital? No Last DP export: 09/06/18 5:09 p Patient Name: IMELDA VELASQUEZ Page 95134 at 1818 All edits/amendments must be made on the electronic document DICTATION DATE: 09/06/181816 BIOSTATISTICS PROFESSOR: LYUBOV 09/06/181816 RPT#: [id number] DC DATE: STATUS: ADM IN [facility] [address] [place] [address] END OF REPORT
--- NOTE | 2018-09-06 18:29 | MORECARE ---
CASE MANAGEMENT DISCHARGE SUMMARY PATIENT: IMELDA VELASQUEZ UNIT: [id number] ADM DATE: 09/06/18 AGE: 72 : 45 SEX: F ROOM/BED: D.2108 AUTHOR: DEYVIDOC PHYSICIAN: REFERRING PHYSICIAN: REMY WAHL MD DATE OF SERVICE: 09/06/18 Discharge Plan Patient Name: IMELDA VELASQUEZ Facility: [facility]:[place] : 1945 Planned Disposition: Senior Living Facility Anticipated Discharge Date: 09/08/18 Discharge Date: Expected LOS: 2 Initial Reviewer: [id number] Initial Review Date: 09/06/2018 Generated: 09/06/18 7:28 pm Comments DCP- Discharge Planning Updated by [id number]: Hugo Dietrich on 09/06/18 5:[address] Patient Name: IMELDA VELASQUEZ Admission Status: ER Accout number: [id number] Admission Date: 09-06-2018 : 1945 Admission Diagnosis: Attending: REMY WAHL Current LOS: 1 Anticipated DC Date: 09-08-2018 Planned Disposition: Senior Living Facility Primary Insurance: MEDICARE A & B PLANNED EXTERNAL PROVIDER: [facility], MEDICARE REHAB BED Discharge Planning Comments: CM MET WITH PT AND DAUGHTER IN ROOM TO DISCUSS DISCHARGE PLANNING AND NEEDS. IMELDA VELASQUEZ provided verbal consent to discuss current and ongoing needs with/in the presence of: DAUGHTERRUSS. PT REPORTS LIVING AT HOME INDEPENDENTLY WITH HER ADULT DAUGHTER. PT HAS WALKER AND ROLLING WALKER WITH NO MEDICAL EQUIPMENT PROVIDER PREFERENCE. PT HAS NO OUTSIDE SERVICES ASSISTING IN THE HOME. CM DISCUSSED AVAILABILITY OF HOME HEALTH, REHAB SERVICES AND MEDICAL EQUIPMENT. PT AND DAUGHTER WANT REHAB AT [facility]. CHOICE LISTING PROVIDED, PT WANTS [facility] SHE HAS FAMILY THAT WORKS THERE AND PT HAS BEEN THERE BEFORE. PT'S DAUGHTER WILL MANAGER FORENSIC FOR DISCHARGE HOME. CHOICE LETTER SIGNED FOR [facility]. CM WAITING ON PHYSICAL THERAPY EVALUATION DOCUMENTATION AND WILL SEND REFERRAL TO [facility] SOON POSSIBLE. Rubbish Collector: Hugo Dietrich DCPIA - Discharge Planning Initial Assessment Updated by [id number]: Hugo Dietrich on 09/06/18 6:15 pm * Is the patient Alert and Oriented? Yes * How many steps to enter\exit or inside your home? * PCP DR. AKERS IN [place] * Pharmacy [facility] IN [place] * Preadmission Environment Home with Family * ADLs Partial Dependent * Partial ADLs (Assistance needed) Medication Management * Equipment Rolling Walker Walker * Other Equipment NO MEDICAL EQUIPMENT PROVIDER PREFERENCE * List name and contact numbers for known caregivers / representatives who currently or will assist patient after discharge: RUSS COHEN, DTR, * Verbal permission to speak to the caregivers and representatives has been obtained from the patient. Yes * Community resources currently utilized None * Please name any agencies selected above. NONE * Additional services required to return to the preadmission environment? Yes * Can the patient safely return to the preadmission environment? Yes * Has this patient been hospitalized within the prior 30 days at any hospital? No Coverage Notice Reviewer: [id number] Eva Dietrich Notice Issued Date-Time: 09/06/2018 11:00 Notice Type: Patient Choice Letter Notice Delivered To: Family Member Relationship to Patient: Daughter Teletype Telegrapher Name: RUSS COHEN Delivery Method: HAND - Hand Delivered Radha Days: Prior Verbal Notification: Recipient Understood Notice: Yes Recipient Signature: Yes Med Rec Note Co-signed by Attending: Coverage Notice Comment: ROBERT ASHLEYAdelina Last DP export: 09/06/18 5:18 p Patient Name: IMELDA VELASQUEZ Page 85165 at 1829 All edits/amendments must be made on the electronic document DICTATION DATE: 09/06/181827 FASHION SUPERVISOR: LYUBOV 09/06/181827 RPT#: [id number] DC DATE: STATUS: ADM IN [facility] [address] [place] [address] END OF REPORT
[2018-09-07 00:56] VITALS: BP 139/82
[2018-09-07 03:49] VITALS: BP 124/76
[2018-09-07 07:15] LABS: ALBUMIN 1.9 g/dL (3.4-5.0); BILIRUBIN - TOTAL 0.2 mg/dL (0.2-1.3); CALCIUM 7.2 mg/dL (8.5-10.1); CREATININE - SERUM 4.5 mg/dL (0.6-1.3); PHOSPHOROUS 3.4 mg/dL (2.5-4.9); PROTEIN - SERUM 6.4 g/dL (6.4-8.2)
[2018-09-07 07:21] LABS: ANION GAP 24.3 mmol/L (8-16); POTASSIUM - SERUM 3.3 mmol/L (3.5-5.1)
[2018-09-07 07:23] LABS: MAGNESIUM - SERUM 0.8 mg/dL (1.8-2.4)
[2018-09-07 07:26] LABS: BASOPHILS 0.2 % (0-2); EOSINOPHILS 0.3 % (0-7); HEMATOCRIT 30.1 % (36.0-48.0); HEMOGLOBIN 9.9 g/dL (12-16); IMMATURE GRANULOCYTES 2.1 % (0-5); LYMPHOCYTES 9.2 % (15-50); MCH 28.4 pg (26.0-34.0); MCHC 32.9 g/dL (31.0-37.0); MCV 86.5 fL (80.0-100.0); MEAN PLATELET VOLUME 8.9 fL (7.4-10.4); MONOCYTES 11.5 % (2-11); NEUTROPHILS 76.7 % (40-80); PLATELET COUNT 362 10x3/uL (130-400); RBC 3.48 10x6/uL (4.00-5.40); RDW 17.4 % (11.5-14.5); WBC 25.2 10x3/uL (4.8-10.8)
[2018-09-07 09:15] VITALS: BP 129/72
[2018-09-07 11:21] LABS: FOLATE (FOLIC ACID) - SERUM 2.5 ng/mL (>3.0)
--- NOTE | 2018-09-07 12:40 | MORECARE ---
CASE MANAGEMENT DISCHARGE SUMMARY PATIENT: IMELDA VELASQUEZ UNIT: [id number] ADM DATE: 09/06/18 AGE: 72 : 45 SEX: F ROOM/BED: D.2106 AUTHOR: JOSE CARNES PHYSICIAN: REFERRING PHYSICIAN: REMY WAHL MD DATE OF SERVICE: 09/07/18 Discharge Plan Patient Name: IMELDA VELASQUEZ Facility: [facility]:[place] : 1945 Planned Disposition: Nursing Home Facility Anticipated Discharge Date: 09/08/18 Discharge Date: Expected LOS: 2 Initial Reviewer: [id number] Initial Review Date: 09/06/2018 Generated: 09/07/18 1:40 pm Comments DCP- Discharge Planning Updated by [email or web address]: Hugo Dietrich on 09/07/18 11:[address] Patient Name: IMELDA VELASQUEZ Encounter No: [id number] : 1945 Primary Insurance: MEDICARE A & B Anticipated DC Date: 09-08-2018 Planned Disposition: Nursing Home Facility External Planned Provider: [facility], MEDICARE REHAB BED DCP follow-up note: CM FAXED REHAB REFERRAL INFORMATION TO [facility] AT [phone]. CM NOTIFIED [facility] OF REHAB REFERRAL AT [phone]. CM WAITING ADMISSION DETERMINATION FROM [facility]. DALILA ABARCA DCP- Discharge Planning Updated by [id number]: Hugo Dietrich on 09/06/18 5:[address] Patient Name: IMELDA VELASQUEZ Admission Status: ER Accout number: [id number] Admission Date: 09-06-2018 : 1945 Admission Diagnosis: Attending: REMY WAHL Current LOS: 1 Anticipated DC Date: 09-08-2018 Planned Disposition: Nursing Home Facility Primary Insurance: MEDICARE A & B PLANNED EXTERNAL PROVIDER: [facility], MEDICARE REHAB BED Discharge Planning Comments: CM MET WITH PT AND DAUGHTER IN ROOM TO DISCUSS DISCHARGE PLANNING AND NEEDS. IMELDA VELASQUEZ provided verbal consent to discuss current and ongoing needs with/in the presence of: DAUGHTER, RUSS. PT REPORTS LIVING AT HOME INDEPENDENTLY WITH HER ADULT DAUGHTER. PT HAS WALKER AND ROLLING WALKER WITH NO MEDICAL EQUIPMENT PROVIDER PREFERENCE. PT HAS NO OUTSIDE SERVICES ASSISTING IN THE HOME. CM DISCUSSED AVAILABILITY OF HOME HEALTH, REHAB SERVICES AND MEDICAL EQUIPMENT. PT AND DAUGHTER WANT [facility]AB AT [facility]. CHOICE LISTING PROVIDED, PT WANTS [facility] SHE HAS FAMILY THAT WORKS THERE AND PT HAS BEEN THERE BEFORE. PT'S DAUGHTER WILL BASE ENGINEER FOR DISCHARGE HOME. CHOICE LETTER SIGNED FOR [facility]. CM WAITING ON PHYSICAL THERAPY EVALUATION DOCUMENTATION AND WILL SEND REFERRAL TO [facility] SOON POSSIBLE. Network Lead: Hugo Dietrich DCPIA - Discharge Planning Initial Assessment Updated by [id number]: Hugo Dietrich on 09/06/18 6:15 pm * Is the patient Alert and Oriented? Yes * How many steps to enter\exit or inside your home? * PCP DR. AKERS IN [place] * Pharmacy [facility] IN [place] * Preadmission Environment Home with Family * ADLs Partial Dependent * Partial ADLs (Assistance needed) Medication Management * Equipment Rolling Walker Walker * Other Equipment NO MEDICAL EQUIPMENT PROVIDER PREFERENCE * List name and contact numbers for known caregivers / representatives who currently or will assist patient after discharge: RUSS COHEN DTR, * Verbal permission to speak to the caregivers and representatives has been obtained from the patient. Yes * Community resources currently utilized None * Please name any agencies selected above. NONE * Additional services required to return to the preadmission environment? Yes * Can the patient safely return to the preadmission environment? Yes * Has this patient been hospitalized within the prior 30 days at any hospital? No External Providers External Provider: [facility] Next Contact Date: 09/08/2018 Service Request Date: Service Type: Resolution: Reviewer: Comments: Coverage Notice Reviewer: [id number] - Hugo Dietrich Notice Issued Date-Time: 09/06/2018 11:00 Notice Type: Patient Choice Letter Notice Delivered To: Family Member Relationship to Patient: Daughter Second Facing Baster Name: RUSS COHEN Delivery Method: HAND - Hand Delivered Radha Days: Prior Verbal Notification: Recipient Understood Notice: Yes Recipient Signature: Yes Med Rec Note Co-signed by Attending: Coverage Notice Comment: ROBERT Weaver DP export: 09/06/18 5:28 p Patient Name: IMELDA VELASQUEZ Page 45939 at 1240 All edits/amendments must be made on the electronic document DICTATION DATE: 09/07/18 1239 GEAR INSPECTOR: DM 09/07/18 1239 RPT#: [id number] DC DATE: STATUS: ADM IN [facility] [address] [place] [address] END OF REPORT
[2018-09-07 12:48] LABS: ANION GAP 24.3 mmol/L (8-16); CALCIUM 7.1 mg/dL (8.5-10.1); CREATININE - SERUM 4.3 mg/dL (0.6-1.3); POTASSIUM - SERUM 3.2 mmol/L (3.5-5.1)
[2018-09-07 12:53] LABS: CARBON DIOXIDE 9.9 mmol/L (21.0-32.0)
[2018-09-07 20:00] VITALS: BP 117/67
[2018-09-08 00:01] VITALS: BP 110/69
[2018-09-08 04:00] VITALS: BP 101/77
[2018-09-08 05:43] LABS: ANION GAP 21.7 mmol/L (8-16)
[2018-09-08 05:46] LABS: HEMOGLOBIN 8.7 g/dL (12-16); MCH 28.3 pg (26.0-34.0); MCHC 33.5 g/dL (31.0-37.0); MCV 84.7 fL (80.0-100.0); MEAN PLATELET VOLUME 8.7 fL (7.4-10.4); PLATELET COUNT 275 10x3/uL (130-400); RBC 3.07 10x6/uL (4.00-5.40); RDW 17.4 % (11.5-14.5); WBC 20.9 10x3/uL (4.8-10.8)
[2018-09-08 05:54] LABS: CARBON DIOXIDE 13.3 mmol/L (21.0-32.0)
[2018-09-08 06:57] LABS: LYMPHOCYTES 6 % (15-50); MONOCYTES 2 % (2-11); NEUTROPHILS 82 % (40-80); PLATELET ESTIMATE NORMAL
--- NOTE | 2018-09-08 07:31 | MORECARE ---
CASE MANAGEMENT DISCHARGE SUMMARY PATIENT: IMELDA VELASQUEZ UNIT: [id number] ADM DATE: 09/06/18 AGE: 72 : 45 SEX: F ROOM/BED: D.2106 AUTHOR: JOSE CARNES PHYSICIAN: REFERRING PHYSICIAN: REMY WAHL MD DATE OF SERVICE: 09/08/18 Discharge Plan Patient Name: IMELDA VELASQUEZ Facility: [facility]:[place] : 1945 Planned Disposition: Detention Facility Anticipated Discharge Date: 09/08/18 Discharge Date: Expected LOS: 2 Initial Reviewer: [id number] Initial Review Date: 09/06/2018 Generated: 09/08/18 8:31 am Comments DCP- Discharge Planning Updated by [email or web address]: Hugo Dietrich on 09/07/18 11:[address] Patient Name: IMELDA VELASQUEZ Encounter No: [id number] : 1945 Primary Insurance: MEDICARE A & B Anticipated DC Date: 09-08-2018 Planned Disposition: Detention Facility External Planned Provider: [facility], MEDICARE REHAB BED DCP follow-up note: CM FAXED REHAB REFERRAL INFORMATION TO [facility] AT [phone]. CM NOTIFIED [facility] OF REHAB REFERRAL AT [phone]. CM WAITING ADMISSION DETERMINATION FROM [facility]. DALILA ABARCA DCP- Discharge Planning Updated by [email or web address]: Hugo Dietrich on 09/06/18 5:[address] Patient Name: IMELDA VELASQUEZ Admission Status: ER Accout number: [id number] Admission Date: 09-06-2018 : 1945 Admission Diagnosis: Attending: REMY WAHL Current LOS: 1 Anticipated DC Date: 09-08-2018 Planned Disposition: Detention Facility Primary Insurance: MEDICARE A & B PLANNED EXTERNAL PROVIDER: [facility], MEDICARE REHAB BED Discharge Planning Comments: CM MET WITH PT AND DAUGHTER IN ROOM TO DISCUSS DISCHARGE PLANNING AND NEEDS. IMELDA VELASQUEZ provided verbal consent to discuss current and ongoing needs with/in the presence of: DAUGHTER, RUSS. PT REPORTS LIVING AT HOME INDEPENDENTLY WITH HER ADULT DAUGHTER. PT HAS WALKER AND ROLLING WALKER WITH NO MEDICAL EQUIPMENT PROVIDER PREFERENCE. PT HAS NO OUTSIDE SERVICES ASSISTING IN THE HOME. CM DISCUSSED AVAILABILITY OF HOME HEALTH, REHAB SERVICES AND MEDICAL EQUIPMENT. PT AND DAUGHTER WANT REHAB AT [facility]. CHOICE LISTING PROVIDED, PT WANTS [facility] SHE HAS FAMILY THAT WORKS THERE AND PT HAS BEEN THERE BEFORE. PT'S DAUGHTER WILL AIR BRAKE OPERATOR FOR DISCHARGE HOME. CHOICE LETTER SIGNED FOR [facility]. CM WAITING ON PHYSICAL THERAPY EVALUATION DOCUMENTATION AND WILL SEND REFERRAL TO [facility] SOON POSSIBLE. Instrument Lens Grinder: Hugo Dietrich DCPIA - Discharge Planning Initial Assessment Updated by [email or web address]: Hugo Dietrich on 09/06/18 6:15 pm * Is the patient Alert and Oriented? Yes * How many steps to enter\exit or inside your home? * PCP DR. AKERS IN [place] * Pharmacy [facility] IN [place] * Preadmission Environment Home with Family * ADLs Partial Dependent * Partial ADLs (Assistance needed) Medication Management * Equipment Rolling Walker Walker * Other Equipment NO MEDICAL EQUIPMENT PROVIDER PREFERENCE * List name and contact numbers for known caregivers / representatives who currently or will assist patient after discharge: RUSS COHEN DTR, * Verbal permission to speak to the caregivers and representatives has been obtained from the patient. Yes * Community resources currently utilized None * Please name any agencies selected above. NONE * Additional services required to return to the preadmission environment? Yes * Can the patient safely return to the preadmission environment? Yes * Has this patient been hospitalized within the prior 30 days at any hospital? No Coverage Notice Reviewer: [id number] - Hugo Dietrich Notice Issued Date-Time: 09/06/2018 11:00 Notice Type: Patient Choice Letter Notice Delivered To: Family Member Relationship to Patient: Daughter Civil Rights Representative Name: RUSS COHEN Delivery Method: HAND - Hand Delivered Radha Days: Prior Verbal Notification: Recipient Understood Notice: Yes Recipient Signature: Yes Med Rec Note Co-signed by Attending: Coverage Notice Comment: ROBERT HEDRICK Last DP export: 09/07/18 11:40 a Patient Name: IMELDA VELASQUEZ Page 63435 at 0731 All edits/amendments must be made on the electronic document DICTATION DATE: 09/08/18729 PRECISION CROP MANAGER: LYUBOV 09/08/18729 RPT#: [id number] DC DATE: STATUS: ADM IN [place] [id number] [place] [address] END OF REPORT
[2018-09-08 08:00] VITALS: BP 122/70
[2018-09-08 11:57] VITALS: BP 122/68
[2018-09-08 15:03] VITALS: BP 100/55
[2018-09-08 22:08] VITALS: BP 150/70
[2018-09-09 05:04] LABS: BASOPHILS 0.1 % (0-2); EOSINOPHILS 1.9 % (0-7); HEMATOCRIT 27.6 % (36.0-48.0); IMMATURE GRANULOCYTES 1.7 % (0-5); LYMPHOCYTES 8.3 % (15-50); MCH 28.4 pg (26.0-34.0); MCHC 32.6 g/dL (31.0-37.0); MEAN PLATELET VOLUME 8.8 fL (7.4-10.4); PLATELET COUNT 263 10x3/uL (130-400); RBC 3.17 10x6/uL (4.00-5.40); RDW 17.3 % (11.5-14.5); WBC 19.5 10x3/uL (4.8-10.8)
[2018-09-09 05:06] LABS: MCV 87.1 fL (80.0-100.0)
[2018-09-09 05:10] LABS: ANION GAP 17.9 mmol/L (8-16); CREATININE - SERUM 3.6 mg/dL (0.6-1.3); POTASSIUM - SERUM 3.2 mmol/L (3.5-5.1)
[2018-09-09 05:11] LABS: CARBON DIOXIDE 18.3 mmol/L (21.0-32.0)
[2018-09-09 07:42] VITALS: BP 174/69
[2018-09-09 11:51] VITALS: BP 128/80
[2018-09-09 16:11] VITALS: BP 114/62
[2018-09-09 20:00] VITALS: BP 124/74
[2018-09-10] VITALS: BP 121/73
[2018-09-10 04:00] VITALS: BP 108/62
[2018-09-10 04:44] LABS: HEMATOCRIT 25.2 % (36.0-48.0); HEMOGLOBIN 8.1 g/dL (12-16); MCHC 32.1 g/dL (31.0-37.0); MCV 87.2 fL (80.0-100.0); MEAN PLATELET VOLUME 8.7 fL (7.4-10.4); PLATELET COUNT 228 10x3/uL (130-400); RBC 2.89 10x6/uL (4.00-5.40); WBC 20.6 10x3/uL (4.8-10.8)
[2018-09-10 04:54] LABS: CREATININE - SERUM 3.4 mg/dL (0.6-1.3)
[2018-09-10 04:56] LABS: CALCIUM 6.9 mg/dL (8.5-10.1); CARBON DIOXIDE 22.9 mmol/L (21.0-32.0); POTASSIUM - SERUM 2.9 mmol/L (3.5-5.1)
[2018-09-10 05:37] LABS: EOSINOPHILS 3 % (0-7); LYMPHOCYTES 9 % (15-50); MONOCYTES 2 % (2-11); NEUTROPHILS 86 % (40-80); PLATELET ESTIMATE NORMAL
[2018-09-10 08:06] VITALS: BP 112/52
[2018-09-10 09:48] LABS: ALBUMIN 1.5 g/dL (3.4-5.0)
[2018-09-10 09:49] LABS: POTASSIUM - SERUM 3.6 mmol/L (3.5-5.1)
[2018-09-10 13:06] VITALS: BP 113/62
[2018-09-10 17:55] VITALS: BP 140/79
[2018-09-10 20:24] VITALS: BP 125/77
[2018-09-11 01:24] VITALS: BP 129/66
[2018-09-11 05:02] VITALS: BP 124/60
[2018-09-11 06:19] LABS: ANION GAP 14.3 mmol/L (8-16); CALCIUM 7.2 mg/dL (8.5-10.1); CARBON DIOXIDE 22.8 mmol/L (21.0-32.0); CREATININE - SERUM 3.1 mg/dL (0.6-1.3); POTASSIUM - SERUM 4.1 mmol/L (3.5-5.1)
[2018-09-11 06:39] LABS: BASOPHILS 0.3 % (0-2); EOSINOPHILS 1.5 % (0-7); HEMATOCRIT 30.2 % (36.0-48.0); HEMOGLOBIN 9.4 g/dL (12-16); IMMATURE GRANULOCYTES 2.5 % (0-5); LYMPHOCYTES 9.8 % (15-50); MCH 28.1 pg (26.0-34.0); MCHC 31.1 g/dL (31.0-37.0); MCV 90.1 fL (80.0-100.0); MONOCYTES 8.6 % (2-11); NEUTROPHILS 77.3 % (40-80); PLATELET COUNT 225 10x3/uL (130-400); RBC 3.35 10x6/uL (4.00-5.40); RDW 17.5 % (11.5-14.5); WBC 21.6 10x3/uL (4.8-10.8)
[2018-09-11 07:03] VITALS: BP 120/64
--- NOTE | 2018-09-11 12:00 | MORECARE ---
CASE MANAGEMENT DISCHARGE SUMMARY PATIENT: IMELDA VELASQUEZ UNIT: [id number] ADM DATE: 09/06/18 AGE: 72 : 45 SEX: F ROOM/BED: D.2106 AUTHOR: JOSE CARNES PHYSICIAN: REFERRING PHYSICIAN: REMY WAHL MD DATE OF SERVICE: 09/11/18 Discharge Plan Patient Name: IMELDA VELASQUEZ Facility: [facility]:[place] : 1945 Planned Disposition: Nursing Home Facility Anticipated Discharge Date: 09/08/18 Discharge Date: Expected LOS: 2 Initial Reviewer: [id number] Initial Review Date: 09/06/2018 Generated: 09/11/18 1:00 pm Comments DCP- Discharge Planning Updated by [email or web address]: Hugo Dietrich on 09/11/18 10:[address] Patient Name: IMELDA VELASQUEZ Encounter No: [id number] : 1945 Primary Insurance: MEDICARE A & B Anticipated DC Date: 09-08-2018 Planned Disposition: Nursing Home Facility External Planned Provider: [facility], MEDICARE REHAB BED DCP follow-up note: CM FAXED REHAB REFERRAL INFORMATION TO [facility] AT [phone]. CM NOTIFIED [facility] OF REHAB REFERRAL [facility] AT [phone]. CM WAITING ADMISSION DETERMINATION FROM [facility]. DALILA ABARCA DCP- Discharge Planning Updated by [id number]: Hugo Dietrich on 09/07/18 11:[address] Patient Name: IMELDA VELASQUEZ Encounter No: [id number] : 1945 Primary Insurance: MEDICARE A & B Anticipated DC Date: 09-08-2018 Planned Disposition: Nursing Home Facility External Planned Provider: [facility], MEDICARE REHAB BED DCP follow-up note: CM FAXED REHAB REFERRAL INFORMATION TO [facility] AT [phone]. CM NOTIFIED [facility] OF REHAB REFERRAL AT [phone]. CM WAITING ADMISSION DETERMINATION FROM [facility]. DALILA ABARCA DCP- Discharge Planning Updated by [email or web address]: Hugo Dietrich on 09/06/18 5:[address] Patient Name: IMELDA VELASQUEZ Admission Status: ER Accout number: [id number] Admission Date: 09-06-2018 : 1945 Admission Diagnosis: Attending: REMY WAHL Current LOS: 1 Anticipated DC Date: 09-08-2018 Planned Disposition: Nursing Home Facility Primary Insurance: MEDICARE A & B PLANNED EXTERNAL PROVIDER: [facility], MEDICARE REHAB BED Discharge Planning Comments: CM MET WITH PT AND DAUGHTER IN ROOM TO DISCUSS DISCHARGE PLANNING AND NEEDS. IMELDA VELASQUEZ provided verbal consent to discuss current and ongoing needs with/in the presence of: DAUGHTERRUSS. PT REPORTS LIVING AT HOME INDEPENDENTLY WITH HER ADULT DAUGHTER. PT HAS WALKER AND ROLLING WALKER WITH NO MEDICAL EQUIPMENT PROVIDER PREFERENCE. PT HAS NO OUTSIDE SERVICES ASSISTING IN THE HOME. CM DISCUSSED AVAILABILITY OF HOME HEALTH, REHAB SERVICES AND MEDICAL EQUIPMENT. PT AND DAUGHTER WANT REHAB AT [facility]. CHOICE LISTING PROVIDED, PT WANTS [facility] SHE HAS FAMILY THAT WORKS THERE AND PT HAS BEEN THERE BEFORE. PT'S DAUGHTER WILL NIB ASSEMBLER FOR DISCHARGE HOME. CHOICE LETTER SIGNED FOR [facility]. CM WAITING ON PHYSICAL THERAPY EVALUATION DOCUMENTATION AND WILL SEND REFERRAL TO [facility] SOON POSSIBLE. Nuclear Physicist: Hugo Dietrich [facility] - Discharge Planning Initial Assessment Updated by [id number]: Hugo Dietrich on 09/06/18 6:15 pm * Is the patient Alert and Oriented? Yes * How many steps to enter\exit or inside your home? * PCP DR. AKERS IN [place] * Pharmacy [facility] IN [place] * Preadmission Environment Home with Family * ADLs Partial Dependent * Partial ADLs (Assistance needed) Medication Management * Equipment Rolling Walker Walker * Other Equipment NO MEDICAL EQUIPMENT PROVIDER PREFERENCE * List name and contact numbers for known caregivers / representatives who currently or will assist patient after discharge: RUSS COHEN DTR, * Verbal permission to speak to the caregivers and representatives has been obtained from the patient. Yes * Community resources currently utilized None * Please name any agencies selected above. NONE * Additional services required to return to the preadmission environment? Yes * Can the patient safely return to the preadmission environment? Yes * Has this patient been hospitalized within the prior 30 days at any hospital? No Coverage Notice Reviewer: [id number] Eva Dietrich Notice Issued Date-Time: 09/06/2018 11:00 Notice Type: Patient Choice Letter Notice Delivered To: Family Member Relationship to Patient: Daughter Patient Care Manager Name: RUSS COHEN Delivery Method: HAND - Hand Delivered Radha Days: Prior Verbal Notification: Recipient Understood Notice: Yes Recipient Signature: Yes Med Rec Note Co-signed by Attending: Coverage Notice Comment: ROBERT HEDRICK Last DP export: 09/08/18 6:31 a Patient Name: IMELDA VELASQUEZ Page 11930 at 1200 All edits/amendments must be made on the electronic document DICTATION DATE: 09/11/18 1159 CORPORATE ATTORNEY: LYUBOV 09/11/18 1159 RPT#: [id number] DC DATE: STATUS: ADM IN [facility] [address] [place] [address] END OF REPORT
--- NOTE | 2018-09-11 12:20 | MORECARE ---
CASE MANAGEMENT DISCHARGE SUMMARY PATIENT: IMELDA VELASQUEZ UNIT: [id number] ADM DATE: 09/06/18 AGE: 72 : 45 SEX: F ROOM/BED: D.2106 AUTHOR: JOSE CARNES PHYSICIAN: REFERRING PHYSICIAN: REMY WAHL MD DATE OF SERVICE: 09/11/18 Discharge Plan Patient Name: IMELDA VELASQUEZ Facility: [facility]:[place] : 1945 Planned Disposition: Prison Facility Anticipated Discharge Date: 09/11/18 Discharge Date: Expected LOS: 5 Initial Reviewer: [id number] Initial Review Date: 09/06/2018 Generated: 09/11/18 1:20 pm Comments DCP- Discharge Planning Updated by JUSTEN: Hugo Dietrich on 09/11/18 10:[address] Patient Name: IMELDA VELASQUEZ Encounter No: [id number] : 1945 Primary Insurance: MEDICARE A & B Anticipated DC Date: 09-08-2018 Planned Disposition: Prison Facility External Planned Provider: [facility], MEDICARE REHAB BED DCP follow-up note: CM FAXED REHAB REFERRAL INFORMATION TO [facility] AT [phone]. CM NOTIFIED [facility] OF REHAB REFERRAL [place] AT [phone]. CM WAITING ADMISSION DETERMINATION FROM [facility]. DALILA ABARCA DCP- Discharge Planning Updated by [id number]: Hugo Dietrich on 09/07/18 11:[address] Patient Name: IMELDA VELASQUEZ Encounter No: [id number] : 1945 Primary Insurance: MEDICARE A & B Anticipated DC Date: 09-08-2018 Planned Disposition: Prison Facility External Planned Provider: [facility], MEDICARE REHAB BED DCP follow-up note: CM FAXED REHAB REFERRAL INFORMATION TO [facility] AT [phone]. CM NOTIFIED [facility] OF REHAB REFERRAL AT [phone]. CM WAITING ADMISSION DETERMINATION FROM [facility]. DALILA ABARCA DCP- Discharge Planning Updated by [id number]: Hugo Dietrich on 09/06/18 5:[address] Patient Name: IMELDA VELASQUEZ Admission Status: ER Accout number: [id number] Admission Date: 09-06-2018 : 1945 Admission Diagnosis: Attending: REMY WAHL Current LOS: 1 Anticipated DC Date: 09-08-2018 Planned Disposition: Prison Facility Primary Insurance: MEDICARE A & B PLANNED EXTERNAL PROVIDER: [facility], MEDICARE REHAB BED Discharge Planning Comments: CM MET WITH PT AND DAUGHTER IN ROOM TO DISCUSS DISCHARGE PLANNING AND NEEDS. IMELDA VELASQUEZ provided verbal consent to discuss current and ongoing needs with/in the presence of: DAUGHTERRUSS. PT REPORTS LIVING AT HOME INDEPENDENTLY WITH HER ADULT DAUGHTER. PT HAS WALKER AND ROLLING WALKER WITH NO MEDICAL EQUIPMENT PROVIDER PREFERENCE. PT HAS NO OUTSIDE SERVICES ASSISTING IN THE HOME. CM DISCUSSED AVAILABILITY OF HOME HEALTH, REHAB SERVICES AND MEDICAL EQUIPMENT. PT AND DAUGHTER WANT REHAB AT [facility]. CHOICE LISTING PROVIDED, PT WANTS [facility] SHE HAS FAMILY THAT WORKS THERE AND PT HAS BEEN THERE BEFORE. PT'S DAUGHTER WILL REPAIRER TYPEWRITER FOR DISCHARGE HOME. CHOICE LETTER SIGNED FOR [facility]. CM WAITING ON PHYSICAL THERAPY EVALUATION DOCUMENTATION AND WILL SEND REFERRAL TO [facility] SOON POSSIBLE. Reliability Technologist: Hugo Dietrich [facility] - [facility]charge Planning Initial Assessment Updated by [id number]: Hugo Dietrich on 09/06/18 6:15 pm * Is the patient Alert and Oriented? Yes * How many steps to enter\exit or inside your home? * PCP DR. AKERS IN [place] * Pharmacy [facility] IN [place] * Preadmission Environment Home with Family * ADLs Partial Dependent * Partial ADLs (Assistance needed) Medication Management * Equipment Rolling Walker Walker * Other Equipment NO MEDICAL EQUIPMENT PROVIDER PREFERENCE * List name and contact numbers for known caregivers / representatives who currently or will assist patient after discharge: RUSS COHEN DTR, * Verbal permission to speak to the caregivers and representatives has been obtained from the patient. Yes * Community resources currently utilized None * Please name any agencies selected above. NONE * Additional services required to return to the preadmission environment? Yes * Can the patient safely return to the preadmission environment? Yes * Has this patient been hospitalized within the prior 30 days at any hospital? No Coverage Notice Reviewer: [id number] Eva Dietrich Notice Issued Date-Time: 09/06/2018 11:00 Notice Type: Patient Choice Letter Notice Delivered To: Family Member Relationship to Patient: Daughter Home Stereo Equipment Installer Name: RUSS COHEN Delivery Method: HAND - Hand Delivered Radha Days: Prior Verbal Notification: Recipient Understood Notice: Yes Recipient Signature: Yes Med Rec Note Co-signed by Attending: Coverage Notice Comment: ROBERT HEDRICK Reviewer: [id number] - Hugo Dietrich Notice Issued Date-Time: 09/11/2018 12:15 Notice Type: IM Discharge Notice Notice Delivered To: Patient Relationship to Patient: Home Stereo Equipment Installer Name: Delivery Method: HAND - Hand Delivered Radha Days: Prior Verbal Notification: Recipient Understood Notice: Yes Recipient Signature: Yes Med Rec Note Co-signed by Attending: Coverage Notice Comment: Last DP export: 09/11/18 11:00 a Patient Name: IMELDA VELASQUEZ Page 71066 at 1220 All edits/amendments must be made on the electronic document DICTATION DATE: 09/11/181218 AUTOMATIC LINE SET UP MECHANIC: LYUBOV 09/11/181218 RPT#: [id number] DC DATE: STATUS: ADM IN [facility] [address] [place] [address] END OF REPORT
--- NOTE | 2018-09-11 12:29 | MORECARE ---
CASE MANAGEMENT DISCHARGE SUMMARY PATIENT: IMELDA VELASQUEZ UNIT: [id number] ADM DATE: 09/06/18 AGE: 72 : 45 SEX: F ROOM/BED: D.2106 AUTHOR: DEYVI,DOC PHYSICIAN: REFERRING PHYSICIAN: REMY WAHL MD DATE OF SERVICE: 09/11/18 Discharge Plan Patient Name: IMELDA VELASQUEZ Facility: [facility]:[place] : 1945 Planned Disposition: Detention Facility Anticipated Discharge Date: 09/11/18 Discharge Date: Expected LOS: 5 Initial Reviewer: [id number] Initial Review Date: 09/06/2018 Generated: 09/11/18 1:28 pm Comments DCP- Discharge Planning Updated by [email or web address]: Hugo Cervantes on 09/11/18 11:[address] Patient Name: IMELDA VELASQUEZ Encounter No: [id number] : 1945 Primary Insurance: MEDICARE A & B Anticipated DC Date: 09-08-2018 Planned Disposition: Detention Facility External Planned Provider: [facility], MEDICARE REHAB BED DCP follow-up note: CM FAXED REHAB REFERRAL INFORMATION TO [facility] AT [phone]. CM NOTIFIED [facility] OF REHAB REFERRAL [facility] AT [phone]. CM WAITING ADMISSION DETERMINATION FROM [facility]. HUGO CERVANTES, CASE MANAGEMENT Appended by Hugo Cervantes on 09/11/2018 12:23 ROOF PANEL HANGER: CM RECEIVED CALL FROM LITO OF [facility], THEY WILL ACCEPT FOR REHAB AT DISCHARGE, [facility] WILL ARRANGE VAN TRANSPORT TO REHAB IN [place]. CM NOTIFIED PT IN ROOM, PT IN AGREEMENT WITH DISCHARGE TO REHAB AT [facility], IMPORTANT MESSAGE FROM MEDICARE PROVIDED AND EXPLAINED. FOR DISCHARGE, FAX DISCHARGE INFORMATION TO [facility] AT [phone]. NURSE REPORT TO BE CALLED TO [facility] AT [phone]. [facility] TO ARRANGE VAN TRANSPORTATION. DALILA ABARCA DCP- Discharge Planning Updated by [email or web address]: Hugo Cervantes on 09/07/18 11:[address] Patient Name: IMELDA VELASQUEZ Encounter No: [id number] : 1945 Primary Insurance: MEDICARE A & B Anticipated DC Date: 09-08-2018 Planned Disposition: Detention Facility External Planned Provider: [facility], MEDICARE REHAB BED DCP follow-up note: CM FAXED REHAB REFERRAL INFORMATION TO [facility] AT [phone]. CM NOTIFIED [facility] OF REHAB REFERRAL AT [phone]. CM WAITING ADMISSION DETERMINATION FROM [facility]. HUGO CERVANTES, CASE MANAGEMENT DCP- Discharge Planning Updated by [id number]: Hugo Cervantes on 09/06/18 5:[address] Patient Name: IMELDA VELASQUEZ Admission Status: ER Accout number: [id number] Admission Date: 09-06-2018 : 1945 Admission Diagnosis: Attending: REMY WAHL Current LOS: 1 Anticipated DC Date: 09-08-2018 Planned Disposition: Detention Facility Primary Insurance: MEDICARE A & B PLANNED EXTERNAL PROVIDER: [facility], MEDICARE REHAB BED Discharge Planning Comments: CM MET WITH PT AND DAUGHTER IN ROOM TO DISCUSS DISCHARGE PLANNING AND NEEDS. IMELDA VELASQUEZ provided verbal consent to discuss current and ongoing needs with/in the presence of: DAUGHTERRUSS. PT REPORTS LIVING AT HOME INDEPENDENTLY WITH HER ADULT DAUGHTER. PT HAS WALKER AND ROLLING WALKER WITH NO MEDICAL EQUIPMENT PROVIDER PREFERENCE. PT HAS NO OUTSIDE SERVICES ASSISTING IN THE HOME. CM DISCUSSED AVAILABILITY OF HOME HEALTH, REHAB SERVICES AND MEDICAL EQUIPMENT. PT AND DAUGHTER WANT REHAB AT [facility]. CHOICE LISTING PROVIDED, PT WANTS [facility] SHE HAS FAMILY THAT WORKS THERE AND PT HAS BEEN THERE BEFORE. PT'S DAUGHTER WILL PRODUCT DEMONSTRATOR FOR DISCHARGE HOME. CHOICE LETTER SIGNED FOR [facility]. CM WAITING ON PHYSICAL THERAPY EVALUATION DOCUMENTATION AND WILL SEND REFERRAL TO [facility] SOON POSSIBLE. Apartment Maintenance Manager: Hugo Cervantes DCPIA - Discharge Planning Initial Assessment Updated by [email or web address]: Hugo Cervantes on 09/06/18 6:15 pm * Is the patient Alert and Oriented? Yes * How many steps to enter\exit or inside your home? * PCP DR. AKERS IN [place] * Pharmacy [facility] IN [place] * Preadmission Environment Home with Family * ADLs Partial Dependent * Partial ADLs (Assistance needed) Medication Management * Equipment Rolling Walker Walker * Other Equipment NO MEDICAL EQUIPMENT PROVIDER PREFERENCE * List name and contact numbers for known caregivers / representatives who currently or will assist patient after discharge: RUSS COHEN DTR, * Verbal permission to speak to the caregivers and representatives has been obtained from the patient. Yes * Community resources currently utilized None * Please name any agencies selected above. NONE * Additional services required to return to the preadmission environment? Yes * Can the patient safely return to the preadmission environment? Yes * Has this patient been hospitalized within the prior 30 days at any hospital? No Coverage Notice Reviewer: [id number] Eva Cervantes Notice Issued Date-Time: 09/06/2018 11:00 Notice Type: Patient Choice Letter Notice Delivered To: Family Member Relationship to Patient: Daughter Second Cutter Name: RUSS COHEN Delivery Method: HAND - Hand Delivered Radha Days: Prior Verbal Notification: Recipient Understood Notice: Yes Recipient Signature: Yes Med Rec Note Co-signed by Attending: Coverage Notice Comment: ROBERT HEDRICK Reviewer: [id number] Eva Cervantes Notice Issued Date-Time: 09/11/2018 12:15 Notice Type: IM Discharge Notice Notice Delivered To: Patient Relationship to Patient: Second Cutter Name: Delivery Method: HAND - Hand Delivered Radha Days: Prior Verbal Notification: Recipient Understood Notice: Yes Recipient Signature: Yes Med Rec Note Co-signed by Attending: Coverage Notice Comment: Last DP export: 09/11/18 11:20 a Patient Name: IMELDA VELASQUEZ Page [id number] at 1229 All edits/amendments must be made on the electronic document DICTATION DATE: 09/11/181227 ICU RN: LYUBOV 09/11/181227 RPT#: [id number] DC DATE: STATUS: ADM IN [facility] [address] [place] [address] END OF REPORT
[2018-09-11 12:53] VITALS: BP 131/67
[2018-09-11 17:47] VITALS: BP 135/72
[2018-09-11 21:03] VITALS: BP 124/65
[2018-09-12 01:03] VITALS: BP 128/60
[2018-09-12 05:42] LABS: ANION GAP 14.8 mmol/L (8-16); CALCIUM 7.5 mg/dL (8.5-10.1); CARBON DIOXIDE 23.6 mmol/L (21.0-32.0); CREATININE - SERUM 3.1 mg/dL (0.6-1.3); POTASSIUM - SERUM 4.4 mmol/L (3.5-5.1)
[2018-09-12 06:03] LABS: BASOPHILS 0.5 % (0-2); HEMATOCRIT 29.8 % (36.0-48.0); HEMOGLOBIN 9.2 g/dL (12-16); IMMATURE GRANULOCYTES 4.2 % (0-5); LYMPHOCYTES 10.1 % (15-50); MCH 27.8 pg (26.0-34.0); MCHC 30.9 g/dL (31.0-37.0); NEUTROPHILS 74.2 % (40-80); PLATELET COUNT 225 10x3/uL (130-400); RBC 3.31 10x6/uL (4.00-5.40); RDW 16.9 % (11.5-14.5); WBC 19.1 10x3/uL (4.8-10.8)
[2018-09-12 06:21] VITALS: BP 131/70
[2018-09-12 09:06] VITALS: BP 155/65
[2018-09-12 13:06] VITALS: BP 124/61
[2018-09-12] MEDS ORDERED: DIFLUCAN100 MG PO (17:52)
[2018-09-12 19:11] VITALS: BP 123/62
[2018-09-12 22:27] VITALS: BP 137/71
[2018-09-13 02:16] VITALS: BP 135/73
[2018-09-13 05:44] VITALS: BP 136/74
[2018-09-13 08:41] VITALS: BP 129/78
--- NOTE | 2018-09-13 08:42 | MORECARE ---
CASE MANAGEMENT DISCHARGE SUMMARY PATIENT: IMELDA VELASQUEZ UNIT: [id number] ADM DATE: 09/06/18 AGE: 72 : 45 SEX: F ROOM/BED: D.2101 AUTHOR: DEYVI,DOC PHYSICIAN: REFERRING PHYSICIAN: REMY WAHL MD DATE OF SERVICE: 09/13/18 Discharge Plan Patient Name: IMELDA VELASQUEZ Facility: [facility]:[place] : 1945 Planned Disposition: [facility]ci Facility Anticipated Discharge Date: 09/11/18 Discharge Date: Expected LOS: 5 Initial Reviewer: [id number] Initial Review Date: 09/06/2018 Generated: 09/13/18 9:42 am Comments DCP- Discharge Planning Updated by [id number]: Hugo Cervantes on 09/13/18 7:[address] Patient Name: IMELDA VELASQUEZ Encounter No: [id number] : 1945 Primary Insurance: MEDICARE A & B Anticipated DC Date: 09-11-2018 Planned Disposition: [facility] Facility External Planned Provider: [facility], MEDICARE REHAB BED DCP follow-up note: CM FAXED REHAB REFERRAL UPDATE TO [facility] AT [phone]. FOR DISCHARGE, FAX DISCHARGE INFORMATION TO [facility] AT [phone]. NURSE REPORT TO BE CALLED TO [facility] AT [phone]. [facility] TO ARRANGE VAN TRANSPORTATION. DALILA ABARCA DCP- Discharge Planning Updated by [id number]: Hugo Cervantes on 09/11/18 11:[address] Patient Name: IMELDA VELASQUEZ Encounter No: [id number] : 1945 Primary Insurance: MEDICARE A & B Anticipated DC Date: 09-08-2018 Planned Disposition: [facility] Facility External Planned Provider: [facility], MEDICARE REHAB BED DCP follow-up note: CM FAXED REHAB REFERRAL INFORMATION TO [facility] AT [phone]. CM NOTIFIED [facility] OF REHAB REFERRAL [facility] AT [phone]. CM WAITING ADMISSION DETERMINATION FROM [facility]. HUGO CERVANTES CASE MANAGEMENT Appended by Hugo Cervantes on 09/11/2018 12:[address] RADIO INSTALLER: CM RECEIVED CALL FROM LITO OF [facility], THEY WILL ACCEPT FOR REHAB AT DISCHARGE, [facility] WILL ARRANGE VAN TRANSPORT TO REHAB IN [place]. CM NOTIFIED PT IN ROOM, PT IN AGREEMENT WITH DISCHARGE TO REHAB AT [facility], IMPORTANT MESSAGE FROM MEDICARE PROVIDED AND EXPLAINED. FOR DISCHARGE, FAX DISCHARGE INFORMATION TO [facility] AT [phone]. NURSE REPORT TO BE CALLED TO [facility] AT [phone]. [facility] TO ARRANGE VAN TRANSPORTATION. DALILA ABARCA MANAGEMENT DCP- Discharge Planning Updated by [id number]: Hugo Cervantes on 09/07/18 11:[address] Patient Name: IMELDA VELASQUEZ Encounter No: [id number] : 1945 Primary Insurance: MEDICARE A & B Anticipated DC Date: 09-08-2018 Planned Disposition: [facility]ci Facility External Planned Provider: [facility] RE[facility] B[facility] DCP follow-up note: CM FAXED REHAB REFERRAL INFORMATION TO [facility] AT [phone]. CM NOTIFIED [facility] OF REHAB REFERRAL AT [phone]. CM WAITING ADMISSION DETERMINATION FROM [facility]. DALILA ABARCA DCP- Discharge Planning Updated by [id number]: Hugo Cervantes on 09/06/18 5:[address] Patient Name: IMELDA VELASQUEZ Admission Status: ER Accout number: [id number] Admission Date: 09-06-2018 : 1945 Admission Diagnosis: Attending: REMY WAHL Current LOS: 1 Anticipated DC Date: 09-08-2018 Planned Disposition: [facility]ci Facility Primary Insurance: MEDICARE A & B PLANNED EXTERNAL PROVIDER: [facility], MEDICARE REHAB BED Discharge Planning Comments: CM MET WITH PT AND DAUGHTER IN ROOM TO DISCUSS DISCHARGE PLANNING AND NEEDS. IMELDA VELASQUEZ provided verbal consent to discuss current and ongoing needs with/in the presence of: DAUGHTER, RUSS. PT REPORTS LIVING AT HOME INDEPENDENTLY WITH HER ADULT DAUGHTER. PT HAS WALKER AND ROLLING WALKER WITH NO MEDICAL EQUIPMENT PROVIDER PREFERENCE. PT HAS NO OUTSIDE SERVICES ASSISTING IN THE HOME. CM DISCUSSED AVAILABILITY OF HOME HEALTH, REHAB SERVICES AND MEDICAL EQUIPMENT. PT AND DAUGHTER WANT REHAB AT [facility]. CHOICE LISTING PROVIDED, PT WANTS [facility] SHE HAS FAMILY THAT WORKS THERE AND PT HAS BEEN THERE BEFORE. PT'S DAUGHTER WILL SOIL TESTER FOR DISCHARGE HOME. CHOICE LETTER SIGNED FOR [facility]. WAITING ON PHYSICAL THERAPY EVALUATION DOCUMENTATION AND WILL SEND REFERRAL TO [facility] SOON POSSIBLE. Mortuary Technician: Hugo Cervantes DCPIA - Discharge Planning Initial Assessment Updated by [id number]: Hugo Cervantes on 09/06/18 6:15 pm * Is the patient Alert and Oriented? Yes * How many steps to enter\exit or inside your home? * PCP DR. AKERS IN [place] * Pharmacy [facility] IN [place] * Preadmission Environment Home with Family * ADLs Partial Dependent * Partial ADLs (Assistance needed) Medication Management * Equipment Rolling Walker Walker * Other Equipment NO MEDICAL EQUIPMENT PROVIDER PREFERENCE * List name and contact numbers for known caregivers / representatives who currently or will assist patient after discharge: RUSS COHEN, DTR, * Verbal permission to speak to the caregivers and representatives has been obtained from the patient. Yes * Community resources currently utilized None * Please name any agencies selected above. NONE * Additional services required to return to the preadmission environment? Yes * Can the patient safely return to the preadmission environment? Yes * Has this patient been hospitalized within the prior 30 days at any hospital? No Coverage Notice Reviewer: [id number] Eva Cervantes Notice Issued Date-Time: 09/06/2018 11:00 Notice Type: Patient Choice Letter Notice Delivered To: Family Member Relationship to Patient: Daughter Senior Technical Project Manager Name: RUSS COHEN Delivery Method: HAND - Hand Delivered Radha Days: Prior Verbal Notification: Recipient Understood Notice: Yes Recipient Signature: Yes Med Rec Note Co-signed by Attending: Coverage Notice Comment: ROBERT HEDRICK Reviewer: [id number] Eva Cervantes Notice Issued Date-Time: 09/11/2018 12:15 Notice Type: IM Discharge Notice Notice Delivered To: Patient Relationship to Patient: Senior Technical Project Manager Name: Delivery Method: HAND - Hand Delivered Radha Days: Prior Verbal Notification: Recipient Understood Notice: Yes Recipient Signature: Yes Med Rec Note Co-signed by Attending: Coverage Notice Comment: Last DP export: 09/11/18 11:29 a Patient Name: IMELDA VELASQUEZ Page 81400 at 0842 All edits/amendments must be made on the electronic document DICTATION DATE: 09/13/18841 STARTER CUP POWDER MIXER: LYUBOV 09/13/18841 RPT#: [id number] DC DATE: STATUS: ADM IN [facility] [address] [facility] [address] END OF REPORT
[2018-09-13 12:04] VITALS: BP 120/72
--- NOTE | 2018-09-13 12:49 | MORECARE ---
CASE MANAGEMENT DISCHARGE SUMMARY PATIENT: IMELDA VELASQUEZ UNIT: [id number] ADM DATE: 09/06/18 AGE: 72 : 45 SEX: F ROOM/BED: D.2106 AUTHOR: DEYVI,DOC PHYSICIAN: REFERRING PHYSICIAN: REMY WAHL MD DATE OF SERVICE: 09/13/18 Discharge Plan Patient Name: IMELDA VELASQUEZ Facility: [facility]:[place] : 1945 Planned Disposition: Alf Facility Anticipated Discharge Date: 09/13/18 Discharge Date: Expected LOS: 7 Initial Reviewer: [id number] Initial Review Date: 09/06/2018 Generated: 09/13/18 1:48 pm Comments DCP- Discharge Planning Updated by [id number]: Hugo Cervantes on 09/13/18 7:[address] Patient Name: IMELDA VELASQUEZ Encounter No: [id number] : 1945 Primary Insurance: MEDICARE A & B Anticipated DC Date: 09-11-2018 Planned Disposition: Alf Facility External Planned Provider: [facility], MEDICARE REHAB BED DCP follow-up note: CM FAXED REHAB REFERRAL UPDATE TO [facility] AT [phone]. FOR DISCHARGE, FAX DISCHARGE INFORMATION TO [facility] AT [phone]. NURSE REPORT TO BE CALLED TO [facility] AT [phone]. [facility] TO ARRANGE VAN TRANSPORTATION. DALILA ABARCA DCP- Discharge Planning Updated by [id number]: Hugo Cervantes on 09/11/18 11:[address] Patient Name: IMELDA VELASQUEZ Encounter No: [id number] : 1945 Primary Insurance: MEDICARE A & B Anticipated DC Date: 09-08-2018 Planned Disposition: Alf Facility External Planned Provider: [facility], MEDICARE REHAB BED DCP follow-up note: CM FAXED REHAB REFERRAL INFORMATION TO [facility] AT [phone]. CM NOTIFIED [facility] OF REHAB REFERRAL [facility] AT [phone]. CM WAITING ADMISSION DETERMINATION FROM [facility]. HUGO CERVANTES CASE MANAGEMENT Appended by Hugo Cervantes on 09/11/2018 12:23 PROFILING MACHINE OPERATOR: CM RECEIVED CALL FROM LIT[facility] OF [facility], THEY WILL ACCEPT FOR REHAB AT DISCHARGE, [facility] WILL ARRANGE VAN TRANSPORT TO REHAB IN [place]. CM NOTIFIED PT IN ROOM, PT IN AGREEMENT WITH DISCHARGE TO REHAB AT [facility], IMPORTANT MESSAGE FROM MEDICARE PROVIDED AND EXPLAINED. FOR DISCHARGE, FAX DISCHARGE INFORMATION TO [facility] AT [phone]. NURSE REPORT TO BE CALLED TO [facility] AT [phone]. [facility] TO ARRANGE VAN TRANSPORTATION. DALILA ABARCA MANAGEMENT DCP- Discharge Planning Updated by [id number]: Hugo Cervantes on 09/07/18 11:[address] Patient Name: IMELDA VELASQUEZ Encounter No: [id number] : 1945 Primary Insurance: MEDICARE A & B Anticipated DC Date: 09-08-2018 Planned Disposition: Alf Facility External Planned Provider: [facility] RE[facility] B[facility] DCP follow-up note: CM FAXED REHAB REFERRAL INFORMATION TO [facility] AT [phone]. CM NOTIFIED [facility] OF REHAB REFERRAL AT [phone]. CM WAITING ADMISSION DETERMINATION FROM [facility]. DALILA ABARCA DCP- Discharge Planning Updated by [id number]: Hugo Cervantes on 09/06/18 5:[address] Patient Name: IMELDA VELASQUEZ Admission Status: ER Accout number: [id number] Admission Date: 09-06-2018 : 1945 Admission Diagnosis: Attending: REMY WAHL Current LOS: 1 Anticipated DC Date: 09-08-2018 Planned Disposition: Alf Facility Primary Insurance: MEDICARE A & B PLANNED EXTERNAL PROVIDER: [facility], MEDICARE REHAB BED Discharge Planning Comments: CM MET WITH PT AND DAUGHTER IN ROOM TO DISCUSS DISCHARGE PLANNING AND NEEDS. IMELDA VELASQUEZ provided verbal consent to discuss current and ongoing needs with/in the presence of: DAUGHTER, RUSS. PT REPORTS LIVING AT HOME INDEPENDENTLY WITH HER ADULT DAUGHTER. PT HAS WALKER AND ROLLING WALKER WITH NO MEDICAL EQUIPMENT PROVIDER PREFERENCE. PT HAS NO OUTSIDE SERVICES ASSISTING IN THE HOME. CM DISCUSSED AVAILABILITY OF HOME HEALTH, REHAB SERVICES AND MEDICAL EQUIPMENT. PT AND DAUGHTER WANT REHAB AT [facility]. CHOICE LISTING PROVIDED, PT WANTS [facility] SHE HAS FAMILY THAT WORKS THERE AND PT HAS BEEN THERE BEFORE. PT'S DAUGHTER WILL SURGICAL AIDES TEACHER FOR DISCHARGE HOME. CHOICE LETTER SIGNED FOR [facility]. WAITING ON PHYSICAL THERAPY EVALUATION DOCUMENTATION AND WILL SEND REFERRAL TO [facility] SOON POSSIBLE. Tobacco Hanger: Hugo Cervantes DCPIA - Discharge Planning Initial Assessment Updated by [id number]: Hugo Cervantes on 09/06/18 6:15 pm * Is the patient Alert and Oriented? Yes * How many steps to enter\exit or inside your home? * PCP DR. AKERS IN [place] * Pharmacy [facility] IN [place] * Preadmission Environment Home with Family * ADLs Partial Dependent * Partial ADLs (Assistance needed) Medication Management * Equipment Rolling Walker Walker * Other Equipment NO MEDICAL EQUIPMENT PROVIDER PREFERENCE * List name and contact numbers for known caregivers / representatives who currently or will assist patient after discharge: RUSS COHEN, DTR, * Verbal permission to speak to the caregivers and representatives has been obtained from the patient. Yes * Community resources currently utilized None * Please name any agencies selected above. NONE * Additional services required to return to the preadmission environment? Yes * Can the patient safely return to the preadmission environment? Yes * Has this patient been hospitalized within the prior 30 days at any hospital? No Coverage Notice Reviewer: [id number] Eva Cervantes Notice Issued Date-Time: 09/06/2018 11:00 Notice Type: Patient Choice Letter Notice Delivered To: Family Member Relationship to Patient: Daughter Vice President Financial Name: RUSS COHEN Delivery Method: HAND - Hand Delivered Radha Days: Prior Verbal Notification: Recipient Understood Notice: Yes Recipient Signature: Yes Med Rec Note Co-signed by Attending: Coverage Notice Comment: ROBERT HEDRICK Reviewer: [id number] Eva Cervantes Notice Issued Date-Time: 09/11/2018 12:15 Notice Type: IM Discharge Notice Notice Delivered To: Patient Relationship to Patient: Vice President Financial Name: Delivery Method: HAND - Hand Delivered Radha Days: Prior Verbal Notification: Recipient Understood Notice: Yes Recipient Signature: Yes Med Rec Note Co-signed by Attending: Coverage Notice Comment: Last DP export: 09/13/18 7:42 a Patient Name: IMELDA VELASQUEZ Page 01837 at 0704 All edits/amendments must be made on the electronic document DICTATION DATE: 09/13/188 FISH FROG OR OYSTER FARMER: LYUBOV 09/13/187 RPT#: [id number] DC DATE: STATUS: ADM IN [facility] [address] [place] [address] END OF REPORT
--- NOTE | 2018-09-13 12:56 | MORECARE ---
CASE MANAGEMENT DISCHARGE SUMMARY PATIENT: IMELDA VELASQUEZ UNIT: [id number] ADM DATE: 09/06/18 AGE: 72 : 45 SEX: F ROOM/BED: D.2106 AUTHOR: DEYVI,DOC PHYSICIAN: REFERRING PHYSICIAN: REMY WAHL MD DATE OF SERVICE: 09/13/18 Discharge Plan Patient Name: IMELDA VELASQUEZ Facility: [facility]:[place] : 1945 Planned Disposition: Halfway Facility Anticipated Discharge Date: 09/13/18 Discharge Date: Expected LOS: 7 Initial Reviewer: [id number] Initial Review Date: 09/06/2018 Generated: 09/13/18 1:56 pm Comments DCP- Discharge Planning Updated by [id number]: Hugo Cervantes on 09/13/18 11:[address] Patient Name: IMELDA VELASQUEZ Encounter No: [id number] : 1945 Primary Insurance: MEDICARE A & B Anticipated DC Date: 09-11-2018 Planned Disposition: Halfway Facility External Planned Provider: [facility] MEDICARE REHAB BED DCP follow-up note: FAXED REHAB REFERRAL UPDATE TO [facility] AT [phone]. FOR DISCHARGE, FAX DISCHARGE INFORMATION TO [facility] AT [phone]. NURSE REPORT TO BE CALLED TO [facility] AT [phone]. [facility] TO ARRANGE VAN TRANSPORTATION. HUGO CERVANTES CASE MANAGEMENT Appended by Hugo Cervantes on 09/13/2018 12:50 COMPUTATOR: RECEIVED DISCHARGE ORDER, FAXED DISCHARGE INFORMATION TO [facility] AT [phone]. [facility] OF [facility] ADVISED, VAN TO DELIVER DRIVER AT 1630 TODAY. NURSE REPORT TO BE CALLED TO [facility] AT [phone]. [facility] TO ARRANGE VAN TRANSPORTATION FOR 4:30 PM TODAY. DALILA ABARCA DCP- Discharge Planning Updated by [id number]: Hguo Cervantes on 09/11/18 11:[address] Patient Name: IMELDA VELASQUEZ Encounter No: [id number] : 1945 Primary Insurance: MEDICARE A & B Anticipated DC Date: 09-08-2018 Planned Disposition: Halfway Facility External Planned Provider: [facility], MEDICARE REHAB BED DCP follow-up note: CM FAXED REHAB REFERRAL INFORMATION TO [facility] AT [phone]. CM NOTIFIED [facility] OF REHAB REFERRAL [facility] AT [phone]. CM WAITING ADMISSION DETERMINATION FROM [facility]. HUGO CERVANTES, CASE MANAGEMENT Appended by Hugo Cervantes on 09/11/2018 12:23 COMPUTATOR: CM RECEIVED CALL FROM LITO OF [facility], THEY WILL ACCEPT FOR REHAB AT DISCHARGE, [facility] WILL ARRANGE VAN TRANSPORT TO REHAB IN [place]. CM NOTIFIED PT IN ROOM, PT IN AGREEMENT WITH DISCHARGE TO REHAB AT [facility], IMPORTANT MESSAGE FROM MEDICARE PROVIDED AND EXPLAINED. FOR DISCHARGE, FAX DISCHARGE INFORMATION TO [facility] AT [phone]. NURSE REPORT TO BE CALLED TO [facility] AT [phone]. [facility] TO ARRANGE VAN TRANSPORTATION. DALILA ABARCA DCP- Discharge Planning Updated by [id number]: Hugo Cervantes on 09/07/18 11:[address] Patient Name: IMELDA VELASQUEZ Encounter No: [id number] : 1945 Primary Insurance: MEDICARE A & B Anticipated DC Date: 09-08-2018 Planned Disposition: Halfway Facility External Planned Provider: [facility], MEDICARE REHAB BED DCP follow-up note: CM FAXED REHAB REFERRAL INFORMATION TO [facility] AT [phone]. CM NOTIFIED [facility] OF REHAB REFERRAL AT [phone]. CM WAITING ADMISSION DETERMINATION FROM [facility]. DALILA ABARCA DCP- Discharge Planning Updated by [id number]: Hugo Cervantes on 09/06/18 5:[address] Patient Name: IMELDA VELASQUEZ Admission Status: ER Accout number: [id number] Admission Date: 09-06-2018 : 1945 Admission Diagnosis: Attending: REMY WAHL Current LOS: 1 Anticipated DC Date: 09-08-2018 Planned Disposition: Halfway Facility Primary Insurance: MEDICARE A & B PLANNED EXTERNAL PROVIDER: [facility], MEDICARE REHAB BED Discharge Planning Comments: CM MET WITH PT AND DAUGHTER IN ROOM TO DISCUSS DISCHARGE PLANNING AND NEEDS. IMELDA VELASQUEZ provided verbal consent to discuss current and ongoing needs with/in the presence of: DAUGHTERRUSS. PT REPORTS LIVING AT HOME INDEPENDENTLY WITH HER ADULT DAUGHTER. PT HAS WALKER AND ROLLING WALKER WITH NO MEDICAL EQUIPMENT PROVIDER PREFERENCE. PT HAS NO OUTSIDE SERVICES ASSISTING IN THE HOME. CM DISCUSSED AVAILABILITY OF HOME HEALTH, REHAB SERVICES AND MEDICAL EQUIPMENT. PT AND DAUGHTER WANT REHAB AT [facility]. CHOICE LISTING PROVIDED, PT WANTS [facility] SHE HAS FAMILY THAT WORKS THERE AND PT HAS BEEN THERE BEFORE. PT'S DAUGHTER WILL DELIVER DRIVER FOR DISCHARGE HOME. CHOICE LETTER SIGNED FOR [facility]. CM WAITING ON PHYSICAL THERAPY EVALUATION DOCUMENTATION AND WILL SEND REFERRAL TO [facility] SOON POSSIBLE. Clip Wrapper: Hugo Cervantes DCPIA - Discharge Planning Initial Assessment Updated by [id number]: Hugo Cervantes on 09/06/18 6:15 pm * Is the patient Alert and Oriented? Yes * How many steps to enter\exit or inside your home? * PCP DR. AKERS IN [place] * Pharmacy [facility] IN [place] * Preadmission Environment Home with Family * ADLs Partial Dependent * Partial ADLs (Assistance needed) Medication Management * Equipment Rolling Walker Walker * Other Equipment NO MEDICAL EQUIPMENT PROVIDER PREFERENCE * List name and contact numbers for known caregivers / representatives who currently or will assist patient after discharge: RUSS COHEN, DTR, * Verbal permission to speak to the caregivers and representatives has been obtained from the patient. Yes * Community resources currently utilized None * Please name any agencies selected above. NONE * Additional services required to return to the preadmission environment? Yes * Can the patient safely return to the preadmission environment? Yes * Has this patient been hospitalized within the prior 30 days at any hospital? No Coverage Notice Reviewer: [id number] Eva Cervantes Notice Issued Date-Time: 09/06/2018 11:00 Notice Type: Patient Choice Letter Notice Delivered To: Family Member Relationship to Patient: Daughter Therapeutic Activities Services Worker Name: RUSS COHEN Delivery Method: HAND - Hand Delivered Radha Days: Prior Verbal Notification: Recipient Understood Notice: Yes Recipient Signature: Yes Med Rec Note Co-signed by Attending: Coverage Notice Comment: ROBERT HEDRICK Reviewer: [id number] Eva Cervantes Notice Issued Date-Time: 09/11/2018 12:15 Notice Type: IM Discharge Notice Notice Delivered To: Patient Relationship to Patient: Therapeutic Activities Services Worker Name: Delivery Method: HAND - Hand Delivered Radha Days: Prior Verbal Notification: Recipient Understood Notice: Yes Recipient Signature: Yes Med Rec Note Co-signed by Attending: Coverage Notice Comment: Last DP export: 09/13/18 11:48 a Patient Name: IMELDA VELASQUEZ Page [id number] at 1256 All edits/amendments must be made on the electronic document DICTATION DATE: 09/13/18 1256 HAND WELT BUTTER: [id number] 09/13/18 1256 RPT#: [id number] DC DATE: STATUS: ADM IN [facility] [address] [place] [address] END OF REPORT
[2018-09-18] MEDS ORDERED: DIFLUCAN100 MG PO (03:28)
[2018-09-18] MEDS ORDERED: K-DUR20 MEQ PO (03:29)
[2018-09-18] MEDS ORDERED: NITROSTAT0.4 MG SL (03:29)
[2018-09-18] MEDS ORDERED: NEURONTIN 300300 MG (03:29)
[2018-09-18] MEDS ORDERED: MAG-OX 400 MG400 MG PO (03:30)
[2018-09-18] MEDS ORDERED: FERROUS GLUCON324 MG PO (03:30)
[2018-09-18] MEDS ORDERED: TUMS X-STR300 MG PO (03:30)
[2018-09-18] MEDS ORDERED: SYNTHROID100 MCG PO (03:31)
[2018-09-18] MEDS ORDERED: ROCALTROL0.5 MCG PO (03:31)
[2018-09-18] MEDS ORDERED: QUESTRAN LIG1 PACKET PO (03:32)
[2018-09-18] MEDS ORDERED: SODIUM BICARBO325 MG PO (03:32)
== END 2018-09-13 16:05 | DRG 871 ==
LOC: D.ER 01:25 → D.EDHOLD 04:42 → D.M2 04:42
PROVIDERS: Family Medicine; Internal Medicine Nephrology; ADMIT Internal Medicine Nephrology
DX: A41.9 Sepsis, unspecified organism (principal); J18.9 Pneumonia, unspecified organism; N39.0 Urinary tract infection, site not specified; E87.2 Acidosis; N17.9 Acute kidney failure, unspecified; I12.0 Hypertensive chronic kidney disease with stage 5 chronic kidney disease or end stage renal disease; N18.5 Chronic kidney disease, stage 5; D63.1 Anemia in chronic kidney disease; E87.6 Hypokalemia; E83.42 Hypomagnesemia; I48.91 Unspecified atrial fibrillation

== ENCOUNTER → 2019-04-05 16:56 | Outpatient (CLI) | payer MEDICARE ==
[~2019-04-05 16:56] MED LIST changes: +CARDIZEM SR60 MG PO; +DIFLUCAN100 MG PO; +FERROUS GLUCON324 MG PO; +NEURONTIN 300300 MG; +NITROSTAT0.4 MG SL; +QUESTRAN LIG1 PACKET PO; +ROCALTROL0.5 MCG PO; +SODIUM BICARBO325 MG PO; +SYNTHROID100 MCG PO; +SYNTHROID200 MC1 PO; +TUMS X-STR300 MG PO; +VELTASSA8.4 GM PO
[2019-04-05 17:05] LABS: APPEARANCE SL CLDY (CLEAR); BILIRUBIN NEGATIVE (NEGATIVE); COLOR YELLOW (YELLOW); GLUCOSE NEGATIVE (NEGATIVE); KETONE NEGATIVE (NEGATIVE); NITRITE NEGATIVE (NEGATIVE); PROTEIN TRACE mg/dL (NEGATIVE); UROBILINOGEN NORMAL (NORMAL)
[2019-04-05 17:08] LABS: EPITHELIAL CELLS 0-5 /hpf (0-5); RED CELLS - URINE 0-5 /hpf (0-5)
[2019-04-05 17:09] LABS: BACTERIA MODERATE /hpf (NONE SEEN)
== END | disposition home or self-care (01) ==
LOC: D.LABREF 16:56
PROVIDERS: ATTEND Family Medicine
DX: R10.9 Unspecified abdominal pain (principal)

== ENCOUNTER 2019-04-14 14:02 | Emergency (ER) | payer MEDICARE ==
[~2019-04-14] VITALS: Ht 172.7 cm; Wt 79.5 kg
[2019-04-14 14:04] VITALS: Ht 172.7 cm; Wt 79.5 kg
[2019-04-14] MEDS ORDERED: BAYER CHEWABLE81 MG PO (14:07)
[2019-04-14] MEDS ORDERED: LASIX40 MG PO (14:07)
[2019-04-14] MEDS ORDERED: METOPROLOL TART25 MG PO (14:08)
[2019-04-14 14:43] LABS: BASOPHILS 0.2 % (0-2); EOSINOPHILS 2.2 % (0-7); HEMATOCRIT 26.7 % (36.0-48.0); HEMOGLOBIN 8.4 g/dL (12-16); IMMATURE GRANULOCYTES 0.2 % (0-5); LYMPHOCYTES 31.4 % (15-50); MCH 29.9 pg (26.0-34.0); MCHC 31.5 g/dL (31.0-37.0); MEAN PLATELET VOLUME 9.3 fL (7.4-10.4); PLATELET COUNT 369 10x3/uL (130-400); RBC 2.81 10x6/uL (4.00-5.40); WBC 12.1 10x3/uL (4.8-10.8)
[2019-04-14 15:07] LABS: APTT 28.8 SECONDS (22.8-39.4); INR 1.01 (0.85-1.17); PROTIME 12.8 SECONDS (11.6-15.0)
[2019-04-14 15:40] LABS: ALBUMIN 2.8 g/dL (3.4-5.0); ALKALINE PHOSPHATASE 97 U/L (46-116); ALT (SGPT) 17 U/L (10-68); BILIRUBIN - TOTAL 0.27 mg/dL (0.2-1.3); CALC OSMOLALITY 293 mosm/kg (275-300); CARBON DIOXIDE 20.6 mmol/L (21.0-32.0); CHLORIDE - SERUM 110 mmol/L (98-107); CREATININE - SERUM 4.3 mg/dL (0.6-1.3); POTASSIUM - SERUM 5.8 mmol/L (3.5-5.1); PROTEIN - SERUM 7.6 g/dL (6.4-8.2); SODIUM 142 mmol/L (136-145); UREA NITROGEN 43 mg/dL (7-18); eGFR NON AFRICAN AMERICAN 11 mL/min (90-120)
[2019-04-14 15:42] LABS: GLUCOSE 94 mg/dL (74-106)
[2019-04-14 15:51] LABS: CKMB 3.2 U/L (0.0-3.6); CREATINE KINASE 275 UL (21-215); MAGNESIUM - SERUM 1.4 mg/dL (1.8-2.4); TROPONIN-I < 0.017 ng/mL (0.000-0.060)
[2019-04-14 18:44] VITALS: BP 132/79
== END 2019-04-14 18:45 | disposition home or self-care (01) ==
LOC: D.ER 14:02
PROVIDERS: Family Medicine
DX: F41.9 Anxiety disorder, unspecified (principal); E87.6 Hypokalemia